=== PATIENT | female | born 1960 | race Caucasian/White ===

== ENCOUNTER 2016-05-05 08:24 | Inpatient (IN) | payer OTHER ==
[~2016-05-05] VITALS: Ht 170.2 cm; Wt 125.5 kg
[~2016-05-05 08:24] MED LIST: ADVAIR 250/501 DISK IH; AMLODIPINE BESY10 MG PO; ASPIR-LOW81 MG PO; ASPIRIN81 M2 PO; ATORVASTATIN CA80 MG PO; ATROVENT H200 INHALA IH; BENZONATATE100 MG PO; CARDIZEM CD,CA240 MG PO; CARTIA XT240 MG PO; CEFDINIR300 MG PO; CLOPIDOGREL75 MG PO; CRESTOR5 MG PO; CYCLOBENZAPRINE5 MG PO; DIGOX125 MCG PO; DIOVAN320 MG PO; DOCUSATE SODIU100 MG PO; DUONEB 2.5-0.5 M3 ML AEROSOL; ELIQUIS5 MG PO; FLONASE16 G1 BOTH NARES; FOSRENOL500 MG PO; FUROSEMIDE40 MG PO; IPRATR-ALBUTEROL3 ML IH; LEVAQUIN750 MG PO; LIPITOR80 MG PO; LOPERAMIDE2 MG PO; LOPRESSOR25 MG PO; LOPRESSOR50 MG PO; LORATADINE10 M2 PO; METOPROLOL SUC100 MG PO; MULTIVITAMIN1 EAC2 PO; MYCOSTATIN 100,60 ML PO; NAPROXEN SODIU220 M1 PO; NITROSTAT0.4 MG SL; NORCO 5/3251 TABLET PO; NORVASC5 MG PO; PLAVIX75 MG PO; PREDNISONE10 MG PO; PREDNISONE5 MG PO; PROTONIX40 MG PO; Phoslo PO; Procardia XL,Adalat PO; QVAR 80 MCG IN7.3 GM IH; RENA-VITE RX T1 EACH PO; Rocaltrol PO; SALINE NOSE SPR45 M1 BOTH NARES; SENSIPAR30 MG PO; SENSIPAR60 MG PO; SENSIPAR90 MG PO; SPIRIVA RESPIMAT4 G1 IH; SPIRIVA1 INHALATI IH; VALACYCLOVIR1000 MG PO; ZOVIRAX OINTMEN15 GM TP; oxyCODONE PO
[2016-05-05 09:51] LABS: HEMATOCRIT 28.4 % (36.0-46.0); MCH 28.6 PG (29.0-34.0); MCHC 30.3 G/DL (30.0-36.0); MCV 94.4 FL (83-99); MEAN PLAT.VOLUME 9.6 uM^3 (9.5-12.4); PLATELET COUNT 339 K/uL (156-360); RBC DIS.WIDTH-CV 20.8 % (11.8-14.6); RBC DIS.WIDTH-SD 66.1 % (39-53); RED BLOOD COUNT 3.01 M/uL (3.80-5.20); WHITE BLOOD COUNT 12.4 K/uL (4.1-10.2)
[2016-05-05 09:53] LABS: CHLORIDE 93 mEq/L (99-109); POTASSIUM 4.7 mEq/L (3.7-5.4); SODIUM 137 mEq/L (136-147)
[2016-05-05 09:54] LABS: EOSINOPHIL (%) 2.6 % (0-5); EOSINOPHIL COUNT 0.3 K/uL (0-0.3); IMMATURE GRANULOCYTE (%) 0.2 % (0.0-0.7); IMMATURE GRANULOCYTE COUNT 0.2 K/uL; MAGNESIUM 1.7 mg/dL (1.3-2.7); MONOCYTE COUNT 0.5 K/uL (0-0.8); NEUTROPHIL COUNT 10.6 K/uL (1.8-6.4)
[2016-05-05 09:55] LABS: GLUCOSE 105 mg/dL (70-99)
[2016-05-05 09:57] LABS: ANION GAP 16 MEQ/L (2-14); TOTAL BILIRUBIN 0.6 mg/dL (0.0-1.0)
[2016-05-05 09:59] LABS: ALKALINE PHOSPHATASE 101 IU/L (3-129); GFR ESTIMATE (CALCULATED) 8 mL/min/
[2016-05-05 10:02] LABS: CREATINE KINASE 42 IU/L (1-294); TOTAL CK 42 IU/L (1-294)
[2016-05-05 10:04] LABS: UREA NITROGEN (BUN) 62 mg/dL (9-23)
[2016-05-05 10:08] LABS: CK-MB 2.1 ng/mL (0.0-4.9)
[2016-05-05 19:28] VITALS: BP 178/78
[2016-05-06 00:33] VITALS: BP 168/74
[2016-05-06 03:51] VITALS: BP 155/81
[2016-05-06 08:02] VITALS: BP 216/91
[2016-05-06 08:07] LABS: C DIFF TOXIN POSITIVE (NEGATIVE)
[2016-05-06 08:12] LABS: PROBE CHECK PASS
[2016-05-06 11:35] LABS: ANION GAP 15 MEQ/L (2-14); CHLORIDE 90 MEQ/L (99-109); MAGNESIUM 1.6 mg/dl (1.3-2.7); POTASSIUM 4.8 MEQ/L (3.7-5.4); SAMPLE HEMOLYSIS CHECK 0; SAMPLE ICTERIC CHECK 0; SAMPLE LIPEMIA CHECK 0; SODIUM 134 MEQ/L (136-147)
[2016-05-06 11:42] LABS: GFR ESTIMATE (CALCULATED) 7 mL/min/; GLUCOSE 141 mg/dL (70-99); UREA NITROGEN (BUN) 68 mg/dL (9-23)
[2016-05-06 13:17] LABS: HEMATOCRIT 24.2 % (36.0-46.0); MCH 29.5 PG (29.0-34.0); MCHC 32.2 G/DL (30.0-36.0); MCV 91.7 FL (83-99); MEAN PLAT.VOLUME 9.4 uM^3 (9.5-12.4); PLATELET COUNT 281 K/uL (156-360); RBC DIS.WIDTH-CV 20.9 % (11.8-14.6); RED BLOOD COUNT 2.64 M/uL (3.80-5.20); WHITE BLOOD COUNT 7.7 K/uL (4.1-10.2)
[2016-05-06 15:49] VITALS: BP 189/76
[2016-05-06 20:06] VITALS: BP 158/82
[2016-05-07] VITALS: BP 161/75
[2016-05-07 04:00] VITALS: BP 150/96
[2016-05-07 06:49] LABS: HEMATOCRIT 24.9 % (36.0-46.0); MCHC 31.3 G/DL (30.0-36.0); MCV 92.6 FL (83-99); MEAN PLAT.VOLUME 9.6 uM^3 (9.5-12.4); PLATELET COUNT 261 K/uL (156-360); RBC DIS.WIDTH-CV 21.1 % (11.8-14.6); RBC DIS.WIDTH-SD 70.5 % (39-53); RED BLOOD COUNT 2.69 M/uL (3.80-5.20); WHITE BLOOD COUNT 6.3 K/uL (4.1-10.2)
[2016-05-07 07:06] LABS: EOSINOPHIL COUNT 0.2 K/uL (0-0.3); IMMATURE GRANULOCYTE (%) 0.2 % (0.0-0.7); LYMPHOCYTE COUNT 0.9 K/uL (1.0-2.8); MONOCYTE (%) 6.9 % (3-12); MONOCYTE COUNT 0.4 K/uL (0-0.8); NEUTROPHIL COUNT 4.8 K/uL (1.8-6.4)
[2016-05-07 07:19] LABS: ANION GAP 9 MEQ/L (2-14); CHLORIDE 96 MEQ/L (99-109); GFR ESTIMATE (CALCULATED) 11 mL/min/; POTASSIUM 4.4 MEQ/L (3.7-5.4); SAMPLE HEMOLYSIS CHECK 0; SAMPLE ICTERIC CHECK 0; SAMPLE LIPEMIA CHECK 0; SODIUM 134 MEQ/L (136-147); UREA NITROGEN (BUN) 43 mg/dL (9-23)
[2016-05-07 07:22] LABS: GLUCOSE 102 mg/dL (70-99)
[2016-05-07 08:00] VITALS: BP 132/78; BP 139/82
[2016-05-07 12:00] VITALS: BP 191/96
[2016-05-07 12:30] VITALS: BP 145/78
[2016-05-07] MEDS ORDERED: METRONIDAZOLE500 MG PO (12:33)
[2016-05-07] MEDS ORDERED: ARANESP100 MCG/0. IV (12:33)
[2016-05-07] MEDS ORDERED: HECTOROL4 MCG/2 M1 IV (12:33)
[2016-05-07] MEDS ORDERED: VENOFER100 MG/5 M IV (12:33)
[2016-05-07 14:30] VITALS: BP 130/78
== END 2016-05-07 15:08 | DRG 371 ==
LOC: EME → EDBD 08:24 → EME 08:24 → 5SOUTH 14:12 → EDOF 14:12 → 5SOUTH 18:53
PROVIDERS: Emergency Medicine; Hospitalist; Internal Medicine
PROC: 5A1D00Z (ICD-10-PCS; principal; 2016-05-06)
DX: A04.7 Enterocolitis due to Clostridium difficile (principal); N18.6 End stage renal disease; I12.0 Hypertensive chronic kidney disease with stage 5 chronic kidney disease or end stage renal disease; J96.10 Chronic respiratory failure, unspecified whether with hypoxia or hypercapnia; I50.32 Chronic diastolic (congestive) heart failure; N25.81 Secondary hyperparathyroidism of renal origin; Q61.2 Polycystic kidney, adult type; I89.0 Lymphedema, not elsewhere classified; D63.1 Anemia in chronic kidney disease; D50.9 Iron deficiency anemia, unspecified; Z99.81 Dependence on supplemental oxygen; J44.9 Chronic obstructive pulmonary disease, unspecified; I48.91 Unspecified atrial fibrillation; Z99.2 Dependence on renal dialysis; I25.10 Atherosclerotic heart disease of native coronary artery without angina pectoris; F41.9 Anxiety disorder, unspecified; F32.9 Major depressive disorder, single episode, unspecified; Z86.73 Personal history of transient ischemic attack (TIA), and cerebral infarction without residual deficits; G89.29 Other chronic pain; M54.9 Dorsalgia, unspecified; F17.200 Nicotine dependence, unspecified, uncomplicated; Z66 Do not resuscitate; E87.70 Fluid overload, unspecified
CPT/HCPCS: 71020; 80048; 80053; 80069; 81003; 82550; 82553; 83735; 85025; 85027; 87493; 87506; 93005; 94640; 94640 76; 94799; 99202; 99281; 99284; G0378; G8978 GP CJ; G8979 GP CI; G8988 GO CJ; G8990 GO CK; J1270; J1644; J1756; S0030

== ENCOUNTER 2016-07-02 11:46 | Inpatient (IN) | payer OTHER ==
[2016-07-02] VITALS (9 sets, daily range): BP systolic 160–196; BP diastolic 73–106
[~2016-07-02] VITALS: Ht 170.2 cm; Wt 106.8 kg
[~2016-07-02 11:46] MED LIST changes: +ARANESP100 MCG/0. IV; +HECTOROL4 MCG/2 M1 IV; +METRONIDAZOLE500 MG PO; +VENOFER100 MG/5 M IV
[2016-07-02 12:32] LABS: BASE EXCESS 18.9 mEq/L (-3 to +3); BICARBONATE 44.5 mEq/L (22-26); CARBOXY HGB 2.9 % (0-5); METHEMOGLOBIN 0.9 % (0-1.5); PCO2 57 mm Hg (35-45); PO2 452 mm Hg (80-100)
[2016-07-02 12:35] LABS: COMMENTS - BLOOD GASES A+C+; DEVICE MASK VENT; FI02 100 %; MODE SPONT; PEEP 5 CM/H20; PRES. SUPPORT 10 CM/H2O; TOTAL RESP RATE 35 resp/min
[2016-07-02 13:32] LABS: MCH 29.7 PG (29.0-34.0); MEAN PLAT.VOLUME 10.2 uM^3 (9.5-12.4); PLATELET COUNT 170 K/uL (156-360); RBC DIS.WIDTH-CV 17.7 % (11.8-14.6); RBC DIS.WIDTH-SD 58.2 % (39-53); RED BLOOD COUNT 3.23 M/uL (3.80-5.20)
[2016-07-02 13:39] LABS: EOSINOPHIL (%) 0.4 % (0-5); IMMATURE GRANULOCYTE (%) 0.4 % (0.0-0.7); IMMATURE GRANULOCYTE COUNT 0.4 K/uL; LYMPHOCYTE COUNT 0.6 K/uL (1.0-2.8); MONOCYTE (%) 4.9 % (3-12); MONOCYTE COUNT 0.5 K/uL (0-0.8); NEUTROPHIL COUNT 9.8 K/uL (1.8-6.4)
[2016-07-02 13:40] LABS: CHLORIDE 90 mEq/L (99-109); POTASSIUM 3.5 mEq/L (3.7-5.4); SODIUM 142 mEq/L (136-147)
[2016-07-02 13:42] LABS: GLUCOSE 114 mg/dL (70-99)
[2016-07-02 13:44] LABS: ANION GAP 16 MEQ/L (2-14); TOTAL BILIRUBIN 1.9 mg/dL (0.0-1.0)
[2016-07-02 13:46] LABS: ALKALINE PHOSPHATASE 129 IU/L (3-129); GFR ESTIMATE (CALCULATED) 12 mL/min/
[2016-07-02 13:47] LABS: UREA NITROGEN (BUN) 24 mg/dL (9-23)
[2016-07-02 13:59] LABS: TROP-I INTERPRETATION NEGATIVE; TROPONIN-I 0.06 ng/mL (0.0-0.30)
[2016-07-02] MEDS ORDERED: SENSIPAR60 MG PO (15:19)
[2016-07-02 16:32] LABS: MAGNESIUM 1.7 mg/dL (1.3-2.7)
[2016-07-02 17:02] LABS: METH RESISTANT S AUREUS PCR POSITIVE (NEGATIVE)
[2016-07-02 17:05] LABS: PROBE CHECK PASS
[2016-07-02 19:20] LABS: POINT-OF-CARE METER ID UU14174217
[2016-07-03] VITALS (8 sets, daily range): BP systolic 116–174; BP diastolic 61–79
[2016-07-03 00:57] LABS: POINT-OF-CARE METER ID UU14174217
[2016-07-03 05:46] LABS: NRBC (%) 0.3 /100 WBC (0-0)
[2016-07-03 06:11] LABS: ANION GAP 14 MEQ/L (2-14); CHLORIDE 89 MEQ/L (99-109); GFR ESTIMATE (CALCULATED) 11 mL/min/; GLUCOSE 119 mg/dL (70-99); MAGNESIUM 1.8 mg/dl (1.3-2.7); POTASSIUM 3.3 MEQ/L (3.7-5.4); SAMPLE HEMOLYSIS CHECK 0; SAMPLE ICTERIC CHECK 0; SAMPLE LIPEMIA CHECK 0; SODIUM 140 MEQ/L (136-147); UREA NITROGEN (BUN) 33 mg/dL (9-23)
[2016-07-03 06:38] LABS: EOSINOPHIL (%) 0 % (0-5); HEMATOCRIT 27.7 % (36.0-46.0); IMMATURE GRANULOCYTE (%) 0.2 % (0.0-0.7); LYMPHOCYTE COUNT 0.6 K/uL (1.0-2.8); MCH 28.6 PG (29.0-34.0); MCHC 30.3 G/DL (30.0-36.0); MCV 94.2 FL (83-99); MEAN PLAT.VOLUME 10.4 uM^3 (9.5-12.4); MONOCYTE (%) 11.9 % (3-12); MONOCYTE COUNT 0.6 K/uL (0-0.8); NEUTROPHIL (%) 75.8 % (45-76); NEUTROPHIL COUNT 3.9 K/uL (1.8-6.4); PLATELET COUNT 155 K/uL (156-360); RBC DIS.WIDTH-SD 61.3 % (39-53); RED BLOOD COUNT 2.94 M/uL (3.80-5.20)
[2016-07-03 06:39] LABS: WHITE BLOOD COUNT 5.2 K/uL (4.1-10.2)
[2016-07-03 06:40] LABS: DIGOXIN 1.3 ng/mL (0.8-2.0)
[2016-07-03 13:32] LABS: POINT-OF-CARE METER ID UU13113731
[2016-07-03 16:43] LABS: TROP-I INTERPRETATION NEGATIVE; TROPONIN-I 0.07 ng/mL (0.0-0.30)
[2016-07-03 16:52] LABS: POINT-OF-CARE METER ID UU14162636
[2016-07-03 21:19] LABS: TROP-I INTERPRETATION NEGATIVE; TROPONIN-I 0.07 ng/mL (0.0-0.30)
[2016-07-03 21:50] LABS: POINT-OF-CARE METER ID UU13113807; POINT-OF-CARE USER ID 608261316
[2016-07-04 03:10] VITALS: BP 132/60
[2016-07-04 03:36] LABS: MCH 29.6 PG (29.0-34.0); MCHC 30.7 G/DL (30.0-36.0); MCV 96.2 FL (83-99); MEAN PLAT.VOLUME 10.9 uM^3 (9.5-12.4); PLATELET COUNT 184 K/uL (156-360); RBC DIS.WIDTH-CV 18.3 % (11.8-14.6); RBC DIS.WIDTH-SD 60.8 % (39-53); RED BLOOD COUNT 2.91 M/uL (3.80-5.20); WHITE BLOOD COUNT 6.6 K/uL (4.1-10.2)
[2016-07-04 03:37] LABS: BASOPHIL COUNT 0.1 K/uL (0-0.1); EOSINOPHIL (%) 0.9 % (0-5); EOSINOPHIL COUNT 0.1 K/uL (0-0.3); IMMATURE GRANULOCYTE (%) 0.3 % (0.0-0.7); IMMATURE GRANULOCYTE COUNT 0.2 K/uL; LYMPHOCYTE COUNT 1.4 K/uL (1.0-2.8); MONOCYTE COUNT 0.7 K/uL (0-0.8); NEUTROPHIL (%) 67.5 % (45-76); NEUTROPHIL COUNT 4.5 K/uL (1.8-6.4)
[2016-07-04 03:49] LABS: CHLORIDE 96 mEq/L (99-109); POTASSIUM 3.8 mEq/L (3.7-5.4); SODIUM 139 mEq/L (136-147)
[2016-07-04 03:50] LABS: MAGNESIUM 1.7 mg/dL (1.3-2.7)
[2016-07-04 03:52] LABS: GLUCOSE 121 mg/dL (70-99)
[2016-07-04 03:53] LABS: ANION GAP 14 MEQ/L (2-14)
[2016-07-04 03:56] LABS: UREA NITROGEN (BUN) 21 mg/dL (9-23)
[2016-07-04 03:59] LABS: TROP-I INTERPRETATION NEGATIVE; TROPONIN-I 0.06 ng/mL (0.0-0.30)
[2016-07-04 04:00] LABS: ALKALINE PHOSPHATASE 98 IU/L (3-129); GFR ESTIMATE (CALCULATED) 16 mL/min/; TOTAL BILIRUBIN 1.1 mg/dL (0.0-1.0)
[2016-07-04 08:31] VITALS: BP 167/78
[2016-07-04 10:02] LABS: HBSG INDEX 0.18; HPCA INDEX 0.08
[2016-07-04 10:03] LABS: ANTI-HEPATITIS A VIRUS (IGM) Nonreactive; HAV INDEX 0.11
[2016-07-04 10:04] LABS: ANTI-HEPATITIS B CORE (IGM) Nonreactive; HBC IgM INDEX 0.06
[2016-07-04 12:04] LABS: POINT-OF-CARE METER ID UU14149398
[2016-07-04 12:39] VITALS: BP 173/81
[2016-07-04] MEDS ORDERED: LOPRESSOR25 MG PO (13:41)
== END 2016-07-04 13:47 | disposition home health service (06) | DRG 291 ==
LOC: EME → EDBD 11:46 → 4WEST 14:28 → 4SOUTH 14:28 → EDOF 14:28 → 4WEST 15:22 → 4SOUTH 07-03 16:57
PROVIDERS: Emergency Medicine; Hospitalist; Internal Medicine; Internal Medicine Nephrology; Physician Assistant
PROC: 5A1D60Z (ICD-10-PCS; principal; 2016-07-02)
DX: I13.2 Hypertensive heart and chronic kidney disease with heart failure and with stage 5 chronic kidney disease, or end stage renal disease (principal); I50.33 Acute on chronic diastolic (congestive) heart failure; J96.01 Acute respiratory failure with hypoxia; N18.6 End stage renal disease; E87.3 Alkalosis; E87.2 Acidosis; Q61.2 Polycystic kidney, adult type; Q61.3 Polycystic kidney, unspecified; E83.39 Other disorders of phosphorus metabolism; D63.1 Anemia in chronic kidney disease; E87.6 Hypokalemia; I12.0 Hypertensive chronic kidney disease with stage 5 chronic kidney disease or end stage renal disease; I25.10 Atherosclerotic heart disease of native coronary artery without angina pectoris; I48.2 Chronic atrial fibrillation; J44.9 Chronic obstructive pulmonary disease, unspecified; F17.210 Nicotine dependence, cigarettes, uncomplicated; F41.9 Anxiety disorder, unspecified; F32.9 Major depressive disorder, single episode, unspecified; Z86.73 Personal history of transient ischemic attack (TIA), and cerebral infarction without residual deficits; E87.70 Fluid overload, unspecified; M10.9 Gout, unspecified
CPT/HCPCS: 36600; 71010; 80048; 80053; 80074; 80162; 82803; 82948; 83735; 83880; 84100; 84484; 85025; 87641; 93005; 93306; 94002; 94010; 94640; 94640 76; 94644; 94799; 99202; 99281; 99285; J0360; J0881; J1100; J1270; J1644; J1815; J1940; J2060

== ENCOUNTER 2016-09-07 21:14 | Emergency (ER) | payer OTHER ==
[~2016-09-07] VITALS: Ht 170.2 cm; Wt 112.9 kg
[2016-09-07 23:02] VITALS: BP 142/89
[2016-09-07] MEDS ORDERED: NORCO 5/3251 TABLET PO (23:02)
== END 2016-09-08 04:09 | disposition home or self-care (01) ==
LOC: EME → EDBD 21:14 → EME 09-08 04:09
DX: S80.02XA Contusion of left knee, initial encounter (principal); S83.92XA Sprain of unspecified site of left knee, initial encounter; V78.1XXA Passenger on bus injured in noncollision transport accident in nontraffic accident, initial encounter; Y92.811 Bus as the place of occurrence of the external cause; E11.22 Type 2 diabetes mellitus with diabetic chronic kidney disease; I12.0 Hypertensive chronic kidney disease with stage 5 chronic kidney disease or end stage renal disease; N18.6 End stage renal disease; Z99.2 Dependence on renal dialysis; J44.9 Chronic obstructive pulmonary disease, unspecified; J45.909 Unspecified asthma, uncomplicated; E78.5 Hyperlipidemia, unspecified; Z79.02 Long term (current) use of antithrombotics/antiplatelets; Z79.82 Long term (current) use of aspirin; F17.200 Nicotine dependence, unspecified, uncomplicated
CPT/HCPCS: 73564; 99281; 99284

== ENCOUNTER 2016-09-10 11:14 | Inpatient (IN) | payer OTHER ==
[~2016-09-10] VITALS: Ht 170.2 cm; Wt 116.7 kg
[2016-09-10 12:59] LABS: HEMATOCRIT 34.2 % (36.0-46.0); MCHC 31.6 G/DL (30.0-36.0); MCV 98.3 FL (83-99); MEAN PLAT.VOLUME 11.1 uM^3 (9.5-12.4); PLATELET COUNT 148 K/uL (156-360); RBC DIS.WIDTH-CV 17.2 % (11.8-14.6); RBC DIS.WIDTH-SD 62.3 % (39-53); RED BLOOD COUNT 3.48 M/uL (3.80-5.20)
[2016-09-10 13:09] LABS: CHLORIDE 89 mEq/L (99-109); POTASSIUM 4.9 mEq/L (3.7-5.4); SODIUM 138 mEq/L (136-147)
[2016-09-10 13:09] LABS: INTER. NORMALIZED RATIO 1.3; PROTHROMBIN TIME 13.5 (9.2-11.2)
[2016-09-10 13:10] LABS: GLUCOSE 108 mg/dL (70-99)
[2016-09-10 13:12] LABS: ANION GAP 16 MEQ/L (2-14)
[2016-09-10 13:14] LABS: GFR ESTIMATE (CALCULATED) 6 mL/min/
[2016-09-10 13:15] LABS: UREA NITROGEN (BUN) 48 mg/dL (9-23)
[2016-09-10 16:42] LABS: C-REACTIVE PROTEIN 94.3 MG/L (0-10)
[2016-09-10] MEDS ORDERED: LOPRESSOR25 MG PO (17:08)
[2016-09-10] MEDS ORDERED: TYLENOL EXTRA500 MG PO (17:09)
[2016-09-10 19:34] VITALS: BP 139/80
[2016-09-11 00:01] VITALS: BP 136/65
[2016-09-11 04:28] VITALS: BP 120/59
[2016-09-11 05:23] LABS: HEMATOCRIT 29.8 % (36.0-46.0); MCHC 31.2 G/DL (30.0-36.0); MCV 99.3 FL (83-99); MEAN PLAT.VOLUME 10.5 uM^3 (9.5-12.4); PLATELET COUNT 133 K/uL (156-360); RBC DIS.WIDTH-CV 17.3 % (11.8-14.6); RBC DIS.WIDTH-SD 63.4 % (39-53); WHITE BLOOD COUNT 4.6 K/uL (4.1-10.2)
[2016-09-11 05:48] LABS: ANION GAP 10 MEQ/L (2-14); CHLORIDE 90 MEQ/L (99-109); GFR ESTIMATE (CALCULATED) 6 mL/min/; GLUCOSE 93 mg/dL (70-99); POTASSIUM 4.8 MEQ/L (3.7-5.4); SAMPLE HEMOLYSIS CHECK 0; SAMPLE ICTERIC CHECK 0; SAMPLE LIPEMIA CHECK 0; SODIUM 138 MEQ/L (136-147); UREA NITROGEN (BUN) 53 mg/dL (9-23)
[2016-09-11 06:54] LABS: BASOPHIL COUNT 0.1 K/uL (0-0.1); EOSINOPHIL (%) 1.9 % (0-5); EOSINOPHIL COUNT 0.1 K/uL (0-0.3); IMMATURE GRANULOCYTE (%) 0.4 % (0.0-0.7); INSTRUMENT ABS NEUTROPHIL CT 3.4 K/uL; LYMPHOCYTE COUNT 0.9 K/uL (1.0-2.8); MONOCYTE (%) 5.4 % (3-12); MONOCYTE COUNT 0.3 K/uL (0-0.8); NEUTROPHIL (%) 72.8 % (45-76); NEUTROPHIL COUNT 3.4 K/uL (1.8-6.4)
[2016-09-11 08:17] VITALS: BP 133/66
[2016-09-11 08:38] LABS: URIC ACID 6.3 mg/dL (3.1-9.2)
[2016-09-11 20:01] VITALS: BP 135/69
[2016-09-11 23:39] VITALS: BP 137/64
[2016-09-12 03:47] VITALS: BP 146/78
[2016-09-12 07:21] LABS: VANCOMYCIN, TROUGH 10.4 MCG/ML (10-20)
[2016-09-12 07:43] VITALS: BP 136/84
[2016-09-12 09:02] LABS: MCH 32.1 PG (29.0-34.0); MCHC 32.4 G/DL (30.0-36.0); MEAN PLAT.VOLUME 10.9 uM^3 (9.5-12.4); PLATELET COUNT 114 K/uL (156-360); RBC DIS.WIDTH-CV 17.2 % (11.8-14.6); RBC DIS.WIDTH-SD 62.7 % (39-53); RED BLOOD COUNT 2.93 M/uL (3.80-5.20)
[2016-09-12 09:17] LABS: ANION GAP 11 MEQ/L (2-14); CHLORIDE 94 MEQ/L (99-109); POTASSIUM 4.7 MEQ/L (3.7-5.4); SAMPLE HEMOLYSIS CHECK 0; SAMPLE ICTERIC CHECK 0; SAMPLE LIPEMIA CHECK 0; SODIUM 138 MEQ/L (136-147)
[2016-09-12 09:25] LABS: GFR ESTIMATE (CALCULATED) 8 mL/min/; GLUCOSE 109 mg/dL (70-99); UREA NITROGEN (BUN) 35 mg/dL (9-23)
[2016-09-12 09:26] LABS: EOSINOPHIL (%) 1.5 % (0-5); EOSINOPHIL COUNT 0.1 K/uL (0-0.3); IMMATURE GRANULOCYTE (%) 0.3 % (0.0-0.7); INSTRUMENT ABS NEUTROPHIL CT 3.1 K/uL; LYMPHOCYTE COUNT 0.7 K/uL (1.0-2.8); MONOCYTE (%) 3.5 % (3-12); MONOCYTE COUNT 0.1 K/uL (0-0.8); NEUTROPHIL (%) 76.6 % (45-76); NEUTROPHIL COUNT 3.1 K/uL (1.8-6.4)
[2016-09-12 10:27] LABS: HBSG INDEX 0.25
[2016-09-12 16:14] VITALS: BP 137/62
[2016-09-12 23:37] VITALS: BP 131/62
[2016-09-13 08:07] VITALS: BP 150/86
[2016-09-13] MEDS ORDERED: KEFLEX500 MG PO (13:39)
[2016-09-13] MEDS ORDERED: ENDOCET 5-3251 EACH PO (13:40)
[2016-09-13 15:25] LABS: HEMATOCRIT 29.8 % (36.0-46.0); MCH 31.1 PG (29.0-34.0); MCHC 31.2 G/DL (30.0-36.0); MCV 99.7 FL (83-99); MEAN PLAT.VOLUME 10.7 uM^3 (9.5-12.4); PLATELET COUNT 126 K/uL (156-360); RBC DIS.WIDTH-SD 61.6 % (39-53); RED BLOOD COUNT 2.99 M/uL (3.80-5.20); WHITE BLOOD COUNT 3.9 K/uL (4.1-10.2)
[2016-09-13 15:41] LABS: ANION GAP 9 MEQ/L (2-14); CHLORIDE 95 MEQ/L (99-109); GFR ESTIMATE (CALCULATED) 11 mL/min/; GLUCOSE 118 mg/dL (70-99); SAMPLE HEMOLYSIS CHECK 0; SAMPLE ICTERIC CHECK 0; SAMPLE LIPEMIA CHECK 0; SODIUM 136 MEQ/L (136-147); UREA NITROGEN (BUN) 30 mg/dL (9-23)
[2016-09-13 16:22] LABS: ABS NEUTROPHIL COUNT 3.1; ANISOCYTOSIS 2+; BAND NEUTROPHILS 0.9 % (0-8.0); BASOPHILS 1.7 %; EOSINOPHIL ABS CT 0; EOSINOPHILS 0.9 % (0-5.0); HEMATOLOGY COMMENT 1 SN; INSTRUMENT ABS NEUTROPHIL CT 2.9 K/uL; LYMPHOCYTES 13.3 % (15.0-45.0); MACROCYTES 2+; OVALOCYTES 1+; PLAT.SUFFICIENCY DECREASED; POIKILOCYTOSIS 1+; SEG.NEUTROPHILS 78.8 % (46.0-76.0)
== END 2016-09-13 19:53 | DRG 602 ==
LOC: EME 11:14 → 3EAST 15:47 → EDOF 15:47 → 3EAST 19:07
PROVIDERS: Emergency Medicine; Internal Medicine; Internal Medicine Nephrology
DX: L03.116 Cellulitis of left lower limb (principal); I13.2 Hypertensive heart and chronic kidney disease with heart failure and with stage 5 chronic kidney disease, or end stage renal disease; N18.6 End stage renal disease; I48.91 Unspecified atrial fibrillation; N25.81 Secondary hyperparathyroidism of renal origin; Z68.41 Body mass index [BMI] 40.0-44.9, adult; I89.0 Lymphedema, not elsewhere classified; I50.32 Chronic diastolic (congestive) heart failure; Z99.2 Dependence on renal dialysis; J44.9 Chronic obstructive pulmonary disease, unspecified; D63.1 Anemia in chronic kidney disease; I25.10 Atherosclerotic heart disease of native coronary artery without angina pectoris; F17.210 Nicotine dependence, cigarettes, uncomplicated; R26.2 Difficulty in walking, not elsewhere classified; G89.29 Other chronic pain; Z86.73 Personal history of transient ischemic attack (TIA), and cerebral infarction without residual deficits; S40.022A Contusion of left upper arm, initial encounter; S40.021A Contusion of right upper arm, initial encounter; S80.12XA Contusion of left lower leg, initial encounter; S80.11XA Contusion of right lower leg, initial encounter; E83.51 Hypocalcemia; T50.995A Adverse effect of other drugs, medicaments and biological substances, initial encounter; E55.9 Vitamin D deficiency, unspecified; E66.01 Morbid (severe) obesity due to excess calories; Z91.19 Patient's noncompliance with other medical treatment and regimen; B95.62 Methicillin resistant Staphylococcus aureus infection as the cause of diseases classified elsewhere; E87.70 Fluid overload, unspecified; V79.88XA Bus occupant (driver) (passenger) injured in other specified transport accidents, initial encounter
CPT/HCPCS: 71010; 73564; 73610; 80048; 80069; 80202; 82565; 83605; 84550; 85025; 85027; 85610; 85730; 86140; 87040; 87340; 93971; 94640; 94640 76; 94760; 94799; 97530 GO; 97530 GP; 99202; 99281; 99284; 99285; J0690; J0696; J1200; J1644; J3370; J7050

== ENCOUNTER 2016-10-07 08:18 | Emergency (ER) | payer OTHER ==
[~2016-10-07] VITALS: Ht 170.2 cm; Wt 128.1 kg
[~2016-10-07 08:18] MED LIST changes: +ENDOCET 5-3251 EACH PO; +KEFLEX500 MG PO; +TYLENOL EXTRA500 MG PO
[2016-10-07 09:28] LABS: BASOPHIL COUNT 0.1 K/uL (0-0.1); EOSINOPHIL (%) 1.4 % (0-5); EOSINOPHIL COUNT 0.1 K/uL (0-0.3); HEMATOCRIT 38.2 % (36.0-46.0); IMMATURE GRANULOCYTE (%) 0.3 % (0.0-0.7); INSTRUMENT ABS NEUTROPHIL CT 5.4 K/uL; LYMPHOCYTE COUNT 0.8 K/uL (1.0-2.8); MCH 31.4 PG (29.0-34.0); MCHC 31.2 G/DL (30.0-36.0); MCV 100.8 FL (83-99); MEAN PLAT.VOLUME 10.8 uM^3 (9.5-12.4); MONOCYTE (%) 10.1 % (3-12); MONOCYTE COUNT 0.7 K/uL (0-0.8); NEUTROPHIL COUNT 5.4 K/uL (1.8-6.4); PLATELET COUNT 155 K/uL (156-360); RBC DIS.WIDTH-CV 17.7 % (11.8-14.6); RBC DIS.WIDTH-SD 65.8 % (39-53); RED BLOOD COUNT 3.79 M/uL (3.80-5.20); WHITE BLOOD COUNT 7.1 K/uL (4.1-10.2)
[2016-10-07 09:43] LABS: CHLORIDE 88 mEq/L (99-109); POTASSIUM 4.7 mEq/L (3.7-5.4); SODIUM 137 mEq/L (136-147); TROP-I INTERPRETATION NEGATIVE; TROPONIN-I 0.03 ng/mL (0.0-0.30)
[2016-10-07 09:45] LABS: GLUCOSE 90 mg/dL (70-99)
[2016-10-07 09:47] LABS: ANION GAP 13 MEQ/L (2-14); TOTAL BILIRUBIN 1.1 mg/dL (0.0-1.0)
[2016-10-07 09:49] LABS: ALKALINE PHOSPHATASE 115 IU/L (3-129); GFR ESTIMATE (CALCULATED) 9 mL/min/
[2016-10-07 09:50] LABS: UREA NITROGEN (BUN) 44 mg/dL (9-23)
[2016-10-07 20:25] VITALS: BP 154/84
== END 2016-10-07 20:26 ==
LOC: EME → EDBD 08:18 → EME 20:26
PROVIDERS: Emergency Medicine; Internal Medicine Nephrology
PROC: 5A1D00Z (ICD-10-PCS; principal; 2016-10-07)
DX: I13.2 Hypertensive heart and chronic kidney disease with heart failure and with stage 5 chronic kidney disease, or end stage renal disease (principal); N18.6 End stage renal disease; I50.32 Chronic diastolic (congestive) heart failure; Z99.2 Dependence on renal dialysis; Z99.81 Dependence on supplemental oxygen; D63.1 Anemia in chronic kidney disease; F17.200 Nicotine dependence, unspecified, uncomplicated; J44.9 Chronic obstructive pulmonary disease, unspecified; E11.9 Type 2 diabetes mellitus without complications; E78.5 Hyperlipidemia, unspecified; Z86.73 Personal history of transient ischemic attack (TIA), and cerebral infarction without residual deficits
CPT/HCPCS: 71020; 80053; 83880; 84484; 85025; 87340; 93005; 99281; 99285; J1644

== ENCOUNTER 2016-10-17 14:27 | Inpatient (IN) | payer OTHER ==
[~2016-10-17] VITALS: Ht 170.2 cm; Wt 113.6 kg
[2016-10-17 15:03] LABS: BASOPHIL COUNT 0.1 K/uL (0-0.1); EOSINOPHIL (%) 0.6 % (0-5); IMMATURE GRANULOCYTE (%) 0.2 % (0.0-0.7); INSTRUMENT ABS NEUTROPHIL CT 4.1 K/uL; LYMPHOCYTE COUNT 0.6 K/uL (1.0-2.8); MCH 31.9 PG (29.0-34.0); MCHC 31.6 G/DL (30.0-36.0); MONOCYTE (%) 10.4 % (3-12); MONOCYTE COUNT 0.6 K/uL (0-0.8); NEUTROPHIL (%) 76.7 % (45-76); NEUTROPHIL COUNT 4.1 K/uL (1.8-6.4); PLATELET COUNT 127 K/uL (156-360); RBC DIS.WIDTH-CV 16.8 % (11.8-14.6); RBC DIS.WIDTH-SD 61.5 % (39-53); RED BLOOD COUNT 3.07 M/uL (3.80-5.20); WHITE BLOOD COUNT 5.4 K/uL (4.1-10.2)
[2016-10-17 15:11] LABS: CHLORIDE 89 mEq/L (99-109); SODIUM 136 mEq/L (136-147)
[2016-10-17 15:13] LABS: GLUCOSE 119 mg/dL (70-99)
[2016-10-17 15:14] LABS: ANION GAP 11 MEQ/L (2-14)
[2016-10-17 15:15] LABS: TOTAL BILIRUBIN 1.3 mg/dL (0.0-1.0)
[2016-10-17 15:16] LABS: ALKALINE PHOSPHATASE 106 IU/L (3-129)
[2016-10-17 15:17] LABS: GFR ESTIMATE (CALCULATED) 13 mL/min/
[2016-10-17 15:18] LABS: UREA NITROGEN (BUN) 32 mg/dL (9-23)
[2016-10-17 15:25] LABS: TROP-I INTERPRETATION NEGATIVE; TROPONIN-I 0.04 ng/mL (0.0-0.30)
[2016-10-17] MEDS ORDERED: FUROSEMIDE20 MG PO (16:09)
[2016-10-17] MEDS ORDERED: LOPRESSOR25 MG PO (16:10)
[2016-10-17] MEDS ORDERED: NICODERM CQ1 EACH TD (16:11)
[2016-10-17] MEDS ORDERED: KEFLEX500 MG PO (16:15)
[2016-10-17 19:29] VITALS: BP 167/83
[2016-10-17 19:40] VITALS: BP 167/83
[2016-10-17 20:00] VITALS: BP 152/85
[2016-10-17 20:49] LABS: TROP-I INTERPRETATION NEGATIVE; TROPONIN-I 0.05 ng/mL (0.0-0.30)
[2016-10-17 21:00] VITALS: BP 156/83
[2016-10-17 21:19] LABS: METH RESISTANT S AUREUS PCR NEGATIVE (NEGATIVE)
[2016-10-17 21:24] LABS: PROBE CHECK PASS; SPECIMEN PROCESSING CONTROL PASS
[2016-10-17 22:00] VITALS: BP 150/78
[2016-10-17 23:00] VITALS: BP 163/88
[2016-10-17 23:33] LABS: POINT-OF-CARE METER ID UU13113731
[2016-10-18] VITALS (24 sets, daily range): BP systolic 126–179; BP diastolic 73–98
[2016-10-18 03:31] LABS: TROP-I INTERPRETATION NEGATIVE; TROPONIN-I 0.03 ng/mL (0.0-0.30)
[2016-10-18 06:39] LABS: HEMATOCRIT 31.6 % (36.0-46.0); MCH 31.5 PG (29.0-34.0); MCHC 31.6 G/DL (30.0-36.0); MCV 99.7 FL (83-99); MEAN PLAT.VOLUME 10.6 uM^3 (9.5-12.4); PLATELET COUNT 124 K/uL (156-360); RBC DIS.WIDTH-CV 16.7 % (11.8-14.6); RBC DIS.WIDTH-SD 60.8 % (39-53); RED BLOOD COUNT 3.17 M/uL (3.80-5.20); WHITE BLOOD COUNT 2.5 K/uL (4.1-10.2)
[2016-10-18 07:00] LABS: ANION GAP 13 MEQ/L (2-14); CHLORIDE 88 MEQ/L (99-109); GFR ESTIMATE (CALCULATED) 11 mL/min/; POTASSIUM 4.5 MEQ/L (3.7-5.4); SAMPLE HEMOLYSIS CHECK 0; SAMPLE ICTERIC CHECK 0; SAMPLE LIPEMIA CHECK 0; SODIUM 138 MEQ/L (136-147); UREA NITROGEN (BUN) 44 mg/dL (9-23)
[2016-10-18 07:02] LABS: GLUCOSE 192 mg/dL (70-99)
[2016-10-18 11:20] LABS: HBSG INDEX 0.23
[2016-10-18 12:34] LABS: POINT-OF-CARE METER ID UU13113803; POINT-OF-CARE USER ID 612031313
[2016-10-18 18:03] LABS: POINT-OF-CARE USER ID 612031313
[2016-10-19] VITALS (20 sets, daily range): BP systolic 145–179; BP diastolic 70–93
[2016-10-19 06:48] LABS: ANION GAP 13 MEQ/L (2-14); CHLORIDE 92 MEQ/L (99-109); GFR ESTIMATE (CALCULATED) 15 mL/min/; MAGNESIUM 1.9 mg/dl (1.3-2.7); POTASSIUM 4.1 MEQ/L (3.7-5.4); SAMPLE HEMOLYSIS CHECK 0; SAMPLE ICTERIC CHECK 0; SAMPLE LIPEMIA CHECK 0; SODIUM 138 MEQ/L (136-147); UREA NITROGEN (BUN) 37 mg/dL (9-23)
[2016-10-19 06:50] LABS: GLUCOSE 111 mg/dL (70-99)
[2016-10-19 07:04] LABS: BASOPHIL COUNT 0.1 K/uL (0-0.1); EOSINOPHIL (%) 0.1 % (0-5); HEMATOCRIT 32.3 % (36.0-46.0); IMMATURE GRANULOCYTE (%) 0.5 % (0.0-0.7); IMMATURE GRANULOCYTE COUNT 0.1 K/uL; INSTRUMENT ABS NEUTROPHIL CT 7.4 K/uL; LYMPHOCYTE COUNT 0.9 K/uL (1.0-2.8); MCH 31.9 PG (29.0-34.0); MCHC 31.6 G/DL (30.0-36.0); MCV 100.9 FL (83-99); MEAN PLAT.VOLUME 11.3 uM^3 (9.5-12.4); MONOCYTE (%) 8.4 % (3-12); MONOCYTE COUNT 0.8 K/uL (0-0.8); NEUTROPHIL (%) 81.1 % (45-76); NEUTROPHIL COUNT 7.4 K/uL (1.8-6.4); PLATELET COUNT 160 K/uL (156-360); RBC DIS.WIDTH-SD 62.5 % (39-53); WHITE BLOOD COUNT 9.1 K/uL (4.1-10.2)
[2016-10-19 13:05] LABS: POINT-OF-CARE METER ID UU13113803
[2016-10-19 18:00] LABS: POINT-OF-CARE METER ID UU13113803
[2016-10-19 23:04] LABS: POINT-OF-CARE METER ID UU13113748
[2016-10-20] VITALS (15 sets, daily range): BP systolic 138–179; BP diastolic 71–89
[2016-10-20 09:15] LABS: EOSINOPHIL (%) 0 % (0-5); IMMATURE GRANULOCYTE (%) 1.1 % (0.0-0.7); IMMATURE GRANULOCYTE COUNT 0.1 K/uL; INSTRUMENT ABS NEUTROPHIL CT 4.7 K/uL; LYMPHOCYTE COUNT 0.5 K/uL (1.0-2.8); MCH 32.3 PG (29.0-34.0); MCHC 32.3 G/DL (30.0-36.0); MEAN PLAT.VOLUME 11.3 uM^3 (9.5-12.4); MONOCYTE (%) 4.5 % (3-12); MONOCYTE COUNT 0.3 K/uL (0-0.8); NEUTROPHIL (%) 84.4 % (45-76); NEUTROPHIL COUNT 4.7 K/uL (1.8-6.4); PLATELET COUNT 160 K/uL (156-360); RBC DIS.WIDTH-CV 16.9 % (11.8-14.6); RBC DIS.WIDTH-SD 60.4 % (39-53); WHITE BLOOD COUNT 5.5 K/uL (4.1-10.2)
[2016-10-20 09:37] LABS: ANION GAP 14 MEQ/L (2-14); CHLORIDE 89 MEQ/L (99-109); GFR ESTIMATE (CALCULATED) 11 mL/min/; GLUCOSE 157 mg/dL (70-99); MAGNESIUM 2.1 mg/dl (1.3-2.7); POTASSIUM 4.9 MEQ/L (3.7-5.4); SAMPLE HEMOLYSIS CHECK 0; SAMPLE ICTERIC CHECK 0; SAMPLE LIPEMIA CHECK 0; SODIUM 134 MEQ/L (136-147)
[2016-10-20 09:39] LABS: UREA NITROGEN (BUN) 63 mg/dL (9-23)
[2016-10-20 17:47] LABS: POINT-OF-CARE METER ID UU14174217
[2016-10-20 21:04] LABS: POINT-OF-CARE METER ID UU14174217
[2016-10-21] VITALS (7 sets, daily range): BP systolic 138–152; BP diastolic 71–97
[2016-10-21 06:04] LABS: POINT-OF-CARE METER ID UU13113748
[2016-10-21 08:22] LABS: EOSINOPHIL (%) 0 % (0-5); IMMATURE GRANULOCYTE (%) 0.7 % (0.0-0.7); IMMATURE GRANULOCYTE COUNT 0.1 K/uL; INSTRUMENT ABS NEUTROPHIL CT 6.4 K/uL; LYMPHOCYTE COUNT 0.7 K/uL (1.0-2.8); MCH 32.7 PG (29.0-34.0); MCHC 33.1 G/DL (30.0-36.0); MCV 98.8 FL (83-99); MEAN PLAT.VOLUME 10.8 uM^3 (9.5-12.4); MONOCYTE (%) 5.6 % (3-12); MONOCYTE COUNT 0.4 K/uL (0-0.8); NEUTROPHIL (%) 84.7 % (45-76); NEUTROPHIL COUNT 6.4 K/uL (1.8-6.4); PLATELET COUNT 198 K/uL (156-360); RBC DIS.WIDTH-CV 16.8 % (11.8-14.6); RED BLOOD COUNT 3.24 M/uL (3.80-5.20); WHITE BLOOD COUNT 7.5 K/uL (4.1-10.2)
[2016-10-21 08:32] LABS: ANION GAP 14 MEQ/L (2-14); CHLORIDE 88 MEQ/L (99-109); POTASSIUM 5.1 MEQ/L (3.7-5.4); SAMPLE HEMOLYSIS CHECK 0; SAMPLE ICTERIC CHECK 0; SAMPLE LIPEMIA CHECK 0; SODIUM 131 MEQ/L (136-147)
[2016-10-21 08:40] LABS: GFR ESTIMATE (CALCULATED) 9 mL/min/; GLUCOSE 184 mg/dL (70-99); UREA NITROGEN (BUN) 81 mg/dL (9-23)
[2016-10-21 13:11] LABS: POINT-OF-CARE METER ID UU13113748
[2016-10-21 17:23] LABS: POINT-OF-CARE METER ID UU14174217
[2016-10-21 20:20] LABS: POINT-OF-CARE METER ID UU13113748
[2016-10-22 06:30] LABS: EOSINOPHIL (%) 0 % (0-5); HEMATOCRIT 35.8 % (36.0-46.0); IMMATURE GRANULOCYTE (%) 0.9 % (0.0-0.7); IMMATURE GRANULOCYTE COUNT 0.1 K/uL; INSTRUMENT ABS NEUTROPHIL CT 7.8 K/uL; LYMPHOCYTE COUNT 0.8 K/uL (1.0-2.8); MCH 31.8 PG (29.0-34.0); MCHC 31.8 G/DL (30.0-36.0); MCV 99.7 FL (83-99); MEAN PLAT.VOLUME 10.6 uM^3 (9.5-12.4); MONOCYTE (%) 6.2 % (3-12); MONOCYTE COUNT 0.6 K/uL (0-0.8); NEUTROPHIL (%) 83.9 % (45-76); NEUTROPHIL COUNT 7.8 K/uL (1.8-6.4); NRBC (%) 0.3 /100 WBC (0-0); PLATELET COUNT 230 K/uL (156-360); RBC DIS.WIDTH-CV 16.8 % (11.8-14.6); RBC DIS.WIDTH-SD 60.2 % (39-53); RED BLOOD COUNT 3.59 M/uL (3.80-5.20); WHITE BLOOD COUNT 9.3 K/uL (4.1-10.2)
[2016-10-22 07:03] LABS: ANION GAP 12 MEQ/L (2-14); CHLORIDE 88 MEQ/L (99-109); GFR ESTIMATE (CALCULATED) 12 mL/min/; GLUCOSE 161 mg/dL (70-99); POTASSIUM 5.1 MEQ/L (3.7-5.4); SAMPLE HEMOLYSIS CHECK 1; SAMPLE ICTERIC CHECK 0; SAMPLE LIPEMIA CHECK 0; SODIUM 133 MEQ/L (136-147); UREA NITROGEN (BUN) 59 mg/dL (9-23)
[2016-10-22] MEDS ORDERED: PREDNISONE10 MG PO (07:51)
[2016-10-22] MEDS ORDERED: TESSALON200 MG PO (07:53)
[2016-10-22 08:00] VITALS: BP 141/64
[2016-10-22 08:43] LABS: POINT-OF-CARE METER ID UU13113748
== END 2016-10-22 10:45 | DRG 189 ==
LOC: EME 14:27 → EDOF 17:57 → 4WEST 17:57
PROVIDERS: Emergency Medicine; Hospitalist; Internal Medicine; Internal Medicine Nephrology
PROC: 5A1D60Z (ICD-10-PCS; principal; 2016-10-17)
PROC: 5A09357 Assistance with Respiratory Ventilation, Less than 24 Consecutive Hours, Continuous Positive Airway Pressure (ICD-10-PCS; 2016-10-18)
DX: J96.21 Acute and chronic respiratory failure with hypoxia (principal); N17.9 Acute kidney failure, unspecified; I50.33 Acute on chronic diastolic (congestive) heart failure; N25.81 Secondary hyperparathyroidism of renal origin; E11.22 Type 2 diabetes mellitus with diabetic chronic kidney disease; N18.6 End stage renal disease; I13.2 Hypertensive heart and chronic kidney disease with heart failure and with stage 5 chronic kidney disease, or end stage renal disease; J44.1 Chronic obstructive pulmonary disease with (acute) exacerbation; I48.0 Paroxysmal atrial fibrillation; Q61.2 Polycystic kidney, adult type; E66.01 Morbid (severe) obesity due to excess calories; J90 Pleural effusion, not elsewhere classified; F41.9 Anxiety disorder, unspecified; F32.9 Major depressive disorder, single episode, unspecified; K21.9 Gastro-esophageal reflux disease without esophagitis; F17.200 Nicotine dependence, unspecified, uncomplicated; I25.10 Atherosclerotic heart disease of native coronary artery without angina pectoris; D50.9 Iron deficiency anemia, unspecified; D63.1 Anemia in chronic kidney disease; Z68.41 Body mass index [BMI] 40.0-44.9, adult; Z95.5 Presence of coronary angioplasty implant and graft; Z99.81 Dependence on supplemental oxygen; Z99.2 Dependence on renal dialysis
CPT/HCPCS: 71010; 80048; 80053; 80069; 80162; 82948; 83735; 84100; 84484; 85025; 85027; 87340; 87641; 93005; 93306; 93882; 94002; 94003; 94640; 94640 76; 94660; 94760; 94799; 99202; 99281; 99285; J0881; J1270; J1644; J1756; J1815; J1940; J2920; J2930; J7512

== ENCOUNTER 2016-11-09 16:51 | Emergency (ER) | payer OTHER ==
[~2016-11-09] VITALS: Ht 170.2 cm; Wt 123.1 kg
[~2016-11-09 16:51] MED LIST changes: +FUROSEMIDE20 MG PO; +NICODERM CQ1 EACH TD; +TESSALON200 MG PO
[2016-11-09] MEDS ORDERED: FUROSEMIDE80 MG PO (17:54)
[2016-11-09] MEDS ORDERED: OMEPRAZOLE20 MG PO (17:55)
[2016-11-09] MEDS ORDERED: SENNA8.6 MG PO (17:57)
[2016-11-09] MEDS ORDERED: ADVAIR 250/501 DISK IH (17:58)
[2016-11-09] MEDS ORDERED: FOSRENOL1000 MG PO (17:59)
[2016-11-09 18:23] LABS: HEMATOCRIT 30.2 % (36.0-46.0)
[2016-11-09 22:41] VITALS: BP 138/88
== END 2016-11-09 22:42 ==
LOC: EME 16:51
PROVIDERS: Emergency Medicine
PROC: 0HQDXZZ Repair Right Lower Arm Skin, External Approach (ICD-10-PCS; principal; 2016-11-09)
DX: T82.838A Hemorrhage due to vascular prosthetic devices, implants and grafts, initial encounter (principal); Y84.1 Kidney dialysis as the cause of abnormal reaction of the patient, or of later complication, without mention of misadventure at the time of the procedure; Z99.2 Dependence on renal dialysis; I13.2 Hypertensive heart and chronic kidney disease with heart failure and with stage 5 chronic kidney disease, or end stage renal disease; E11.22 Type 2 diabetes mellitus with diabetic chronic kidney disease; N18.6 End stage renal disease; I50.9 Heart failure, unspecified; E78.5 Hyperlipidemia, unspecified; Z79.02 Long term (current) use of antithrombotics/antiplatelets; Z79.82 Long term (current) use of aspirin; J44.9 Chronic obstructive pulmonary disease, unspecified; J45.909 Unspecified asthma, uncomplicated; Z87.891 Personal history of nicotine dependence
CPT/HCPCS: 85014; 85018; 99281; 99285

== ENCOUNTER → 2016-11-26 | Outpatient (CLI) | payer OTHER ==
[~2016-11-26] MED LIST changes: +FOSRENOL1000 MG PO; +FUROSEMIDE80 MG PO; +OMEPRAZOLE20 MG PO; +SENNA8.6 MG PO; +TUMS500 MG PO
== END ==
LOC: RAD 13:00
DX: R22.1 Localized swelling, mass and lump, neck (principal)
CPT/HCPCS: 93880; 93882

== ENCOUNTER 2016-11-29 08:10 | Day surgery (SDC) | payer OTHER ==
[~2016-11-29] VITALS: Ht 170.2 cm; Wt 121.6 kg
[2016-11-29 08:26] LABS: HEMATOCRIT 27.8 % (36.0-46.0); MCH 30.5 PG (29.0-34.0); MCHC 30.9 G/DL (30.0-36.0); MCV 98.6 FL (83-99); MEAN PLAT.VOLUME 9.8 uM^3 (9.5-12.4); PLATELET COUNT 250 K/uL (156-360); RBC DIS.WIDTH-CV 15.2 % (11.8-14.6); RBC DIS.WIDTH-SD 54.7 % (39-53); RED BLOOD COUNT 2.82 M/uL (3.80-5.20); WHITE BLOOD COUNT 8.2 K/uL (4.1-10.2)
[2016-11-29 08:38] LABS: CHLORIDE 86 mEq/L (99-109); POTASSIUM 3.4 mEq/L (3.7-5.4); SODIUM 136 mEq/L (136-147)
[2016-11-29 08:40] LABS: GLUCOSE 101 mg/dL (70-99)
[2016-11-29 08:41] LABS: ANION GAP 13 MEQ/L (2-14)
[2016-11-29 08:44] LABS: GFR ESTIMATE (CALCULATED) 10 mL/min/
[2016-11-29 08:45] LABS: UREA NITROGEN (BUN) 32 mg/dL (9-23)
[2016-11-29 12:21] LABS: POINT-OF-CARE METER ID UU13113675
[2016-11-29 13:22] VITALS: BP 152/70
[2016-11-29 13:38] VITALS: BP 113/64
== END 2016-11-29 13:53 ==
LOC: SDC 08:10
PROVIDERS: Surgery
PROC: B51W1ZZ Fluoroscopy of Dialysis Shunt/Fistula using Low Osmolar Contrast (ICD-10-PCS; principal; 2016-11-29)
PROC: 05HY33Z Insertion of Infusion Device into Upper Vein, Percutaneous Approach (ICD-10-PCS; principal; 2016-11-29)
PROC: 3E03317 Introduction of Other Thrombolytic into Peripheral Vein, Percutaneous Approach (ICD-10-PCS; principal; 2016-11-29)
PROC: 05753ZZ Dilation of Right Subclavian Vein, Percutaneous Approach (ICD-10-PCS; principal; 2016-11-29)
DX: T82.858A Stenosis of other vascular prosthetic devices, implants and grafts, initial encounter (principal); I12.0 Hypertensive chronic kidney disease with stage 5 chronic kidney disease or end stage renal disease; N18.6 End stage renal disease; Z99.2 Dependence on renal dialysis; J44.9 Chronic obstructive pulmonary disease, unspecified; I25.10 Atherosclerotic heart disease of native coronary artery without angina pectoris; Z95.5 Presence of coronary angioplasty implant and graft; E78.5 Hyperlipidemia, unspecified; F41.1 Generalized anxiety disorder; F17.200 Nicotine dependence, unspecified, uncomplicated; Z79.82 Long term (current) use of aspirin; Z82.49 Family history of ischemic heart disease and other diseases of the circulatory system; Z84.1 Family history of disorders of kidney and ureter; Z82.5 Family history of asthma and other chronic lower respiratory diseases; Z88.8 Allergy status to other drugs, medicaments and biological substances; Z91.030 Bee allergy status
CPT/HCPCS: 80048; 82948; 85027; 87641; 93005; C1725; C1769; C1894; J0690; J1644; J2250; J3010

== ENCOUNTER 2016-12-14 04:33 | Inpatient (IN) | payer OTHER ==
[~2016-12-14] VITALS: Ht 170.2 cm; Wt 129.6 kg
[2016-12-14] MEDS ORDERED: SENSIPAR30 MG PO ×2 (05:04→20:33)
[2016-12-14 05:07] LABS: VENOUS PCO2 54 mm Hg (41-51)
[2016-12-14 05:09] LABS: CARBON DIOXIDE (BICARBONATE) > 40.0 MEQ/L (20-31)
[2016-12-14 05:14] LABS: HEMATOCRIT 28.4 % (36.0-46.0); NRBC (%) 0.2 /100 WBC (0-0); RBC DIS.WIDTH-CV 17.5 % (11.8-14.6); RBC DIS.WIDTH-SD 64.1 % (39-53); RED BLOOD COUNT 2.84 M/uL (3.80-5.20); WHITE BLOOD COUNT 8.8 K/uL (4.1-10.2)
[2016-12-14 05:17] LABS: CHLORIDE 89 mEq/L (99-109); POTASSIUM 3.3 mEq/L (3.7-5.4); SODIUM 139 mEq/L (136-147)
[2016-12-14 05:19] LABS: GLUCOSE 115 mg/dL (70-99)
[2016-12-14 05:20] LABS: ANION GAP 13 MEQ/L (2-14)
[2016-12-14 05:21] LABS: TOTAL BILIRUBIN 1.2 mg/dL (0.0-1.0)
[2016-12-14 05:22] LABS: ALKALINE PHOSPHATASE 128 IU/L (3-129)
[2016-12-14 05:23] LABS: GFR ESTIMATE (CALCULATED) 15 mL/min/
[2016-12-14 05:24] LABS: UREA NITROGEN (BUN) 28 mg/dL (9-23)
[2016-12-14 05:26] LABS: LIPASE 41 U/L (1.0-51.0)
[2016-12-14 05:32] LABS: DIGOXIN 0.8 ng/mL (0.8-2.0); TROP-I INTERPRETATION NEGATIVE; TROPONIN-I 0.03 ng/mL (0.0-0.30)
[2016-12-14 05:47] LABS: MEAN PLAT.VOLUME 10.4 uM^3 (9.5-12.4); PLAT.SUFFICIENCY ADEQUATE; PLATELET COUNT 163 K/uL (156-360)
[2016-12-14 06:47] LABS: ADD MIUA? YES; BILIRUBIN NEGATIVE; BLOOD SMALL; COLOR YELLOW ((YELLOW)); GLUCOSE (STRIP) 50; KETONES NEGATIVE; LEUKOCYTES NEGATIVE; NITRITE NEGATIVE; PROTEIN (STRIP) >=500; SPECIFIC GRAVITY 1.009 (1.000-1.030); UROBILINOGEN 0.2 MG/DL (0.2-1.0)
[2016-12-14 06:49] LABS: BACTERIA NONE SEEN /HPF; EPITHELIAL CELLS NONE SEEN /HPF; MUCUS NONE SEEN /LPF; UCUL ADDED? NO; WHITE BLOOD CELLS 0-5 /HPF (0-5)
[2016-12-14 09:05] VITALS: BP 149/83
[2016-12-14 10:49] LABS: TROP-I INTERPRETATION NEGATIVE; TROPONIN-I 0.04 ng/mL (0.0-0.30)
[2016-12-14 12:02] VITALS: BP 130/91
[2016-12-14 15:00] VITALS: BP 130/74
[2016-12-14 19:26] VITALS: BP 139/78
[2016-12-14 23:46] VITALS: BP 133/71
[2016-12-15 04:10] VITALS: BP 134/76
[2016-12-15 09:20] VITALS: BP 161/96
[2016-12-15 10:25] LABS: HEMATOCRIT 28.2 % (36.0-46.0); MCH 32.4 PG (29.0-34.0); MCHC 31.9 G/DL (30.0-36.0); MCV 101.4 FL (83-99); MEAN PLAT.VOLUME 10.2 uM^3 (9.5-12.4); PLATELET COUNT 144 K/uL (156-360); RBC DIS.WIDTH-CV 17.4 % (11.8-14.6); RBC DIS.WIDTH-SD 64.5 % (39-53); RED BLOOD COUNT 2.78 M/uL (3.80-5.20); WHITE BLOOD COUNT 6.3 K/uL (4.1-10.2)
[2016-12-15 10:41] LABS: TROP-I INTERPRETATION NEGATIVE; TROPONIN-I 0.02 ng/mL (0.0-0.30)
[2016-12-15 10:51] LABS: ANION GAP 15 MEQ/L (2-14); CHLORIDE 88 MEQ/L (99-109); GFR ESTIMATE (CALCULATED) 12 mL/min/; GLUCOSE 129 mg/dL (70-99); POTASSIUM 3.8 MEQ/L (3.7-5.4); SAMPLE HEMOLYSIS CHECK 0; SAMPLE ICTERIC CHECK 0; SAMPLE LIPEMIA CHECK 0; SODIUM 137 MEQ/L (136-147); UREA NITROGEN (BUN) 39 mg/dL (9-23)
[2016-12-15 11:18] VITALS: BP 159/67
[2016-12-15 15:20] VITALS: BP 145/90
[2016-12-15 16:06] LABS: METH RESISTANT S AUREUS PCR POSITIVE (NEGATIVE)
[2016-12-15 16:09] LABS: PROBE CHECK PASS
[2016-12-15 19:58] VITALS: BP 159/64
[2016-12-15 23:30] VITALS: BP 145/76
[2016-12-16 09:00] LABS: EOSINOPHIL COUNT 0.2 K/uL (0-0.3); HEMATOCRIT 27.8 % (36.0-46.0); IMMATURE GRANULOCYTE (%) 0.5 % (0.0-0.7); INSTRUMENT ABS NEUTROPHIL CT 4.6 K/uL; LYMPHOCYTE COUNT 0.8 K/uL (1.0-2.8); MCH 31.4 PG (29.0-34.0); MCHC 31.3 G/DL (30.0-36.0); MCV 100.4 FL (83-99); MEAN PLAT.VOLUME 10.5 uM^3 (9.5-12.4); MONOCYTE (%) 9.6 % (3-12); MONOCYTE COUNT 0.6 K/uL (0-0.8); NEUTROPHIL (%) 73.5 % (45-76); NEUTROPHIL COUNT 4.6 K/uL (1.8-6.4); PLATELET COUNT 150 K/uL (156-360); RBC DIS.WIDTH-CV 17.3 % (11.8-14.6); RBC DIS.WIDTH-SD 62.6 % (39-53); RED BLOOD COUNT 2.77 M/uL (3.80-5.20); WHITE BLOOD COUNT 6.2 K/uL (4.1-10.2)
[2016-12-16 09:16] LABS: ANION GAP 11 MEQ/L (2-14); CHLORIDE 89 MEQ/L (99-109); SAMPLE HEMOLYSIS CHECK 0; SAMPLE ICTERIC CHECK 0; SAMPLE LIPEMIA CHECK 0; SODIUM 135 MEQ/L (136-147)
[2016-12-16 09:24] LABS: GFR ESTIMATE (CALCULATED) 10 mL/min/; GLUCOSE 114 mg/dL (70-99); UREA NITROGEN (BUN) 48 mg/dL (9-23)
[2016-12-16 10:45] LABS: HBSG INDEX 0.18
[2016-12-16 12:28] LABS: VANCOMYCIN, TROUGH 15.8 MCG/ML (10-20)
[2016-12-16 15:58] VITALS: BP 130/72
[2016-12-16 19:43] VITALS: BP 128/59
[2016-12-16 23:47] VITALS: BP 130/60
[2016-12-17 08:07] LABS: BASOPHIL COUNT 0.1 K/uL (0-0.1); EOSINOPHIL (%) 4.1 % (0-5); EOSINOPHIL COUNT 0.2 K/uL (0-0.3); HEMATOCRIT 28.7 % (36.0-46.0); IMMATURE GRANULOCYTE (%) 0.2 % (0.0-0.7); INSTRUMENT ABS NEUTROPHIL CT 3.6 K/uL; LYMPHOCYTE COUNT 0.8 K/uL (1.0-2.8); MCH 32.2 PG (29.0-34.0); MCHC 31.7 G/DL (30.0-36.0); MCV 101.4 FL (83-99); MEAN PLAT.VOLUME 10.8 uM^3 (9.5-12.4); MONOCYTE (%) 10.1 % (3-12); MONOCYTE COUNT 0.5 K/uL (0-0.8); NEUTROPHIL (%) 69.5 % (45-76); NEUTROPHIL COUNT 3.6 K/uL (1.8-6.4); PLATELET COUNT 143 K/uL (156-360); RBC DIS.WIDTH-CV 17.6 % (11.8-14.6); RBC DIS.WIDTH-SD 64.6 % (39-53); RED BLOOD COUNT 2.83 M/uL (3.80-5.20); WHITE BLOOD COUNT 5.2 K/uL (4.1-10.2)
[2016-12-17 08:33] LABS: ANION GAP 13 MEQ/L (2-14); CHLORIDE 91 MEQ/L (99-109); GFR ESTIMATE (CALCULATED) 12 mL/min/; GLUCOSE 147 mg/dL (70-99); POTASSIUM 3.9 MEQ/L (3.7-5.4); SAMPLE HEMOLYSIS CHECK 0; SAMPLE ICTERIC CHECK 0; SAMPLE LIPEMIA CHECK 0; SODIUM 139 MEQ/L (136-147); UREA NITROGEN (BUN) 35 mg/dL (9-23)
[2016-12-17 11:43] VITALS: BP 147/76
[2016-12-17 15:14] VITALS: BP 126/68
[2016-12-17 23:46] VITALS: BP 144/77
[2016-12-18 07:25] VITALS: BP 160/80
[2016-12-18 09:09] LABS: BASOPHIL COUNT 0.1 K/uL (0-0.1); EOSINOPHIL COUNT 0.2 K/uL (0-0.3); HEMATOCRIT 28.6 % (36.0-46.0); IMMATURE GRANULOCYTE (%) 0.2 % (0.0-0.7); INSTRUMENT ABS NEUTROPHIL CT 3.7 K/uL; LYMPHOCYTE COUNT 0.8 K/uL (1.0-2.8); MCH 31.8 PG (29.0-34.0); MCHC 31.5 G/DL (30.0-36.0); MCV 101.1 FL (83-99); MEAN PLAT.VOLUME 10.9 uM^3 (9.5-12.4); MONOCYTE (%) 9.1 % (3-12); MONOCYTE COUNT 0.5 K/uL (0-0.8); NEUTROPHIL (%) 70.5 % (45-76); NEUTROPHIL COUNT 3.7 K/uL (1.8-6.4); PLATELET COUNT 145 K/uL (156-360); RBC DIS.WIDTH-CV 17.2 % (11.8-14.6); RBC DIS.WIDTH-SD 63.8 % (39-53); RED BLOOD COUNT 2.83 M/uL (3.80-5.20); WHITE BLOOD COUNT 5.3 K/uL (4.1-10.2)
[2016-12-18 09:34] LABS: ANION GAP 13 MEQ/L (2-14); CHLORIDE 91 MEQ/L (99-109); GLUCOSE 139 mg/dL (70-99); POTASSIUM 4.3 MEQ/L (3.7-5.4); SAMPLE HEMOLYSIS CHECK 0; SAMPLE ICTERIC CHECK 0; SAMPLE LIPEMIA CHECK 0; SODIUM 136 MEQ/L (136-147); UREA NITROGEN (BUN) 44 mg/dL (9-23)
[2016-12-18 09:36] LABS: GFR ESTIMATE (CALCULATED) 10 mL/min/; VANCOMYCIN, TROUGH 24.9 MCG/ML (10-20)
[2016-12-18] MEDS ORDERED: SENSIPAR60 MG PO (13:21)
[2016-12-18] MEDS ORDERED: SENSIPAR30 MG PO (13:21)
[2016-12-18] MEDS ORDERED: LEVAQUIN500 MG PO (13:23)
[2016-12-18 15:11] VITALS: BP 158/74
== END 2016-12-18 16:07 | DRG 871 ==
LOC: EME → EDBD 04:33 → EDOF 06:14 → 5SOUTH 06:14 → ENRESERV 06:20 → 5SOUTH 07:20 → ENPENDDIS 12-18 → 5SOUTH 12-18 16:07
PROVIDERS: Emergency Medicine; Hospitalist; Internal Medicine; Nurse Practitioner Adult Health
PROC: 5A1D60Z (ICD-10-PCS; principal; 2016-12-16)
DX: A41.9 Sepsis, unspecified organism (principal); J44.0 Chronic obstructive pulmonary disease with (acute) lower respiratory infection; J18.9 Pneumonia, unspecified organism; I13.2 Hypertensive heart and chronic kidney disease with heart failure and with stage 5 chronic kidney disease, or end stage renal disease; N18.6 End stage renal disease; E11.22 Type 2 diabetes mellitus with diabetic chronic kidney disease; I50.9 Heart failure, unspecified; Z99.2 Dependence on renal dialysis; D50.9 Iron deficiency anemia, unspecified; D63.1 Anemia in chronic kidney disease; E78.5 Hyperlipidemia, unspecified; Z99.81 Dependence on supplemental oxygen; F17.200 Nicotine dependence, unspecified, uncomplicated; I25.10 Atherosclerotic heart disease of native coronary artery without angina pectoris; I48.91 Unspecified atrial fibrillation; K21.9 Gastro-esophageal reflux disease without esophagitis; Q61.2 Polycystic kidney, adult type; E66.9 Obesity, unspecified; Z68.41 Body mass index [BMI] 40.0-44.9, adult; Z95.5 Presence of coronary angioplasty implant and graft
CPT/HCPCS: 71010; 71020; 80048; 80053; 80069; 80162; 80202; 81003; 82803; 83605; 83690; 84484; 85025; 85025 91; 85027; 87040; 87340; 87641; 93005; 94640; 94640 76; 94799; 99202; 99281; 99285; J0692; J0881; J1270; J1644; J1756; J1956; J3370; J7040; J7050

== ENCOUNTER → 2016-12-26 | Outpatient (CLI) | payer OTHER ==
[~2016-12-26] MED LIST changes: +LEVAQUIN500 MG PO
== END | disposition home or self-care (01) ==
LOC: RAD 10:35
DX: I51.7 Cardiomegaly (principal); J90 Pleural effusion, not elsewhere classified
CPT/HCPCS: 71020

== ENCOUNTER → 2017-01-28 | Outpatient (CLI) | payer OTHER | LOC: RAD 01-02 11:00 | DX: R91.1 Solitary pulmonary nodule (principal); J90 Pleural effusion, not elsewhere classified; R59.0 Localized enlarged lymph nodes | CPT/HCPCS: 71250 ==

== ENCOUNTER 2017-02-10 09:14 | Emergency (ER) | payer OTHER ==
[~2017-02-10] VITALS: Ht 170.2 cm; Wt 131.5 kg
[2017-02-10 09:41] LABS: EOSINOPHIL (%) 0.9 % (0-5); EOSINOPHIL COUNT 0.1 K/uL (0-0.3); HEMATOCRIT 32.3 % (36.0-46.0); IMMATURE GRANULOCYTE (%) 0.2 % (0.0-0.7); INSTRUMENT ABS NEUTROPHIL CT 4.4 K/uL; LYMPHOCYTE COUNT 0.8 K/uL (1.0-2.8); MCH 30.2 PG (29.0-34.0); MCHC 31.6 G/DL (30.0-36.0); MCV 95.6 FL (83-99); MEAN PLAT.VOLUME 9.8 uM^3 (9.5-12.4); MONOCYTE (%) 10.1 % (3-12); MONOCYTE COUNT 0.6 K/uL (0-0.8); NEUTROPHIL (%) 74.8 % (45-76); NEUTROPHIL COUNT 4.4 K/uL (1.8-6.4); PLATELET COUNT 130 K/uL (156-360); RBC DIS.WIDTH-CV 15.4 % (11.8-14.6); RBC DIS.WIDTH-SD 53.6 % (39-53); RED BLOOD COUNT 3.38 M/uL (3.80-5.20); WHITE BLOOD COUNT 5.9 K/uL (4.1-10.2)
[2017-02-10 09:47] LABS: INTER. NORMALIZED RATIO 1.3; PROTHROMBIN TIME 14.2 SEC (10.2-12.9)
[2017-02-10 09:49] LABS: CHLORIDE 87 mEq/L (99-109); PTT 34.6 SEC (25-37); SODIUM 136 mEq/L (136-147)
[2017-02-10 09:50] LABS: GLUCOSE 106 mg/dL (70-99)
[2017-02-10 09:52] LABS: ANION GAP 14 MEQ/L (2-14)
[2017-02-10 09:54] LABS: GFR ESTIMATE (CALCULATED) 8 mL/min/
[2017-02-10 09:55] LABS: UREA NITROGEN (BUN) 39 mg/dL (9-23)
[2017-02-10 10:02] LABS: TROP-I INTERPRETATION NEGATIVE; TROPONIN-I 0.03 ng/mL (0.0-0.30)
[2017-02-10 15:22] VITALS: BP 184/95
== END 2017-02-10 15:33 ==
LOC: EME 09:14
PROVIDERS: Emergency Medicine
DX: N18.9 Chronic kidney disease, unspecified (principal); I48.91 Unspecified atrial fibrillation; R20.0 Anesthesia of skin; Z99.2 Dependence on renal dialysis; E78.5 Hyperlipidemia, unspecified; I50.9 Heart failure, unspecified; I25.2 Old myocardial infarction; K21.9 Gastro-esophageal reflux disease without esophagitis; Z79.01 Long term (current) use of anticoagulants; Z95.5 Presence of coronary angioplasty implant and graft; Z99.81 Dependence on supplemental oxygen; Z87.891 Personal history of nicotine dependence
CPT/HCPCS: 71010; 80048; 81003; 84484; 85025; 85610; 85730; 93005; 99281; 99284

== ENCOUNTER 2017-05-30 08:16 | Emergency (ER) | payer OTHER ==
[~2017-05-30] VITALS: Ht 170.2 cm; Wt 125.0 kg
[2017-05-30 08:50] LABS: HEMATOCRIT 32.1 % (36.0-46.0); HEMOGLOBIN 10.6 G/DL (11.9-15.5); MCH 30.9 PG (29.0-34.0); MCV 93.6 FL (83-99); PLATELET COUNT 98 K/uL (156-360); RBC DIS.WIDTH-CV 15.7 % (11.8-14.6); RED BLOOD COUNT 3.43 M/uL (3.80-5.20)
[2017-05-30 08:51] LABS: CARBON DIOXIDE (BICARBONATE) 38.9 MEQ/L (20-31)
[2017-05-30 09:00] LABS: ALBUMIN 3.7 g/dL (3.2-4.8)
[2017-05-30 09:02] LABS: GLUCOSE 100 mg/dL (70-99); TOTAL PROTEIN 6.7 g/dL (6.4-8.3)
[2017-05-30 09:04] LABS: TOTAL BILIRUBIN 1.3 mg/dL (0.0-1.0)
[2017-05-30 09:06] LABS: ALKALINE PHOSPHATASE 195 IU/L (3-129); CREATININE 5.3 mg/dL (0.6-1.3); GFR ESTIMATE (CALCULATED) 9 mL/min/
[2017-05-30 09:07] LABS: INTER. NORMALIZED RATIO 1.5; UREA NITROGEN (BUN) 58 mg/dL (9-23)
[2017-05-30 09:08] LABS: AST (GOT) 39 IU/L (2-34)
[2017-05-30 09:09] LABS: ALT (GPT) 33 IU/L (3-49)
[2017-05-30 09:16] LABS: CHLORIDE 86 mEq/L (99-109); POTASSIUM 4.1 mEq/L (3.7-5.4); SODIUM 135 mEq/L (136-147)
[2017-05-30 09:34] LABS: ABS NEUTROPHIL COUNT 4.9; ATYPICAL LYMPHOCYTE 0.9 %; EOSINOPHIL ABS CT 0; LYMPHOCYTES 12.2 % (15.0-45.0); MONOCYTES 5.2 % (0-9.0); SEG.NEUTROPHILS 81.7 % (46.0-76.0); SMUDGE CELLS 5.2
[2017-05-30] MEDS ORDERED: TAMIFLU75 MG PO (10:54)
[2017-05-30 11:14] VITALS: BP 114/81
== END 2017-05-30 11:31 ==
LOC: EME 08:16
PROVIDERS: Physician Assistant
DX: J10.1 Influenza due to other identified influenza virus with other respiratory manifestations (principal); N18.6 End stage renal disease; Z99.2 Dependence on renal dialysis; J44.9 Chronic obstructive pulmonary disease, unspecified; I45.10 Unspecified right bundle-branch block; I48.91 Unspecified atrial fibrillation; Z99.81 Dependence on supplemental oxygen
CPT/HCPCS: 71046; 80053; 82803; 83605; 83880; 85025; 85610; 87040; 87081; 87502; 87651 90; 93005; 94640 76; J1885; J7120

== ENCOUNTER 2017-07-24 06:43 | Inpatient (IN) | payer OTHER ==
[~2017-07-24] VITALS: Ht 170.2 cm; Wt 133.9 kg
[~2017-07-24 06:43] MED LIST changes: +TAMIFLU75 MG PO
[2017-07-24 07:37] LABS: BASOPHIL (%) 0.3 % (0-1); EOSINOPHIL (%) 0.4 % (0-5); EOSINOPHIL COUNT 0.1 K/uL (0-0.3); HEMATOCRIT 32.6 % (36.0-46.0); HEMOGLOBIN 10.8 G/DL (11.9-15.5); IMMATURE GRANULOCYTE (%) 0.3 % (0.0-0.7); LYMPHOCYTE (%) 5.3 % (15-42); LYMPHOCYTE COUNT 0.7 K/uL (1.0-2.8); MCH 31.4 PG (29.0-34.0); MCHC 33.1 G/DL (30.0-36.0); MCV 94.8 FL (83-99); MONOCYTE (%) 5.8 % (3-12); MONOCYTE COUNT 0.8 K/uL (0-0.8); NEUTROPHIL (%) 87.9 % (45-76); NEUTROPHIL COUNT 11.9 K/uL (1.8-6.4); PLATELET COUNT 191 K/uL (156-360); RBC DIS.WIDTH-CV 17.2 % (11.8-14.6); RBC DIS.WIDTH-SD 58.3 % (39-53); RED BLOOD COUNT 3.44 M/uL (3.80-5.20); WHITE BLOOD COUNT 13.5 K/uL (4.1-10.2)
[2017-07-24 07:43] LABS: INTER. NORMALIZED RATIO 1.4
[2017-07-24 07:46] LABS: PTT 34.8 SEC (25-37)
[2017-07-24 08:04] LABS: CHLORIDE 89 MEQ/L (99-109); CREATININE 6.4 MG/DL (0.6-1.3); GFR ESTIMATE (CALCULATED) 7 mL/min/; GLUCOSE 84 mg/dL (70-99); POTASSIUM 4.3 MEQ/L (3.7-5.4); SODIUM 135 MEQ/L (136-147); UREA NITROGEN (BUN) 56 mg/dL (9-23)
[2017-07-24 08:07] LABS: TROP-I INTERPRETATION NEGATIVE; TROPONIN-I 0.05 ng/mL (0.0-0.30)
[2017-07-24 08:40] LABS: DIGOXIN 0.4 ng/mL (0.8-2.0)
[2017-07-24] MEDS ORDERED: LOPRESSOR25 MG PO (11:04)
[2017-07-24] MEDS ORDERED: LASIX20 MG PO (11:07)
[2017-07-24] MEDS ORDERED: ASPIRIN81 M2 PO (11:09)
[2017-07-24] MEDS ORDERED: SYMBICORT60 INHALAT IH (11:23)
[2017-07-24 18:47] VITALS: BP 150/65
[2017-07-24 19:35] VITALS: BP 143/63
[2017-07-24 23:27] VITALS: BP 141/68
[2017-07-25 04:10] VITALS: BP 145/70
[2017-07-25 05:51] LABS: HEMATOCRIT 33.1 % (36.0-46.0); HEMOGLOBIN 10.6 G/DL (11.9-15.5); MCV 96.8 FL (83-99); PLATELET COUNT 146 K/uL (156-360); RBC DIS.WIDTH-CV 17.3 % (11.8-14.6); RBC DIS.WIDTH-SD 62.3 % (39-53); RED BLOOD COUNT 3.42 M/uL (3.80-5.20); WHITE BLOOD COUNT 9.2 K/uL (4.1-10.2)
[2017-07-25 06:31] LABS: CHLORIDE 95 MEQ/L (99-109); CREATININE 4.7 MG/DL (0.6-1.3); GFR ESTIMATE (CALCULATED) 10 mL/min/; GLUCOSE 167 mg/dL (70-99); POTASSIUM 4.7 MEQ/L (3.7-5.4); SODIUM 136 MEQ/L (136-147); UREA NITROGEN (BUN) 37 mg/dL (9-23)
[2017-07-25 07:37] VITALS: BP 140/78
[2017-07-25 11:50] VITALS: BP 147/69
[2017-07-25 15:42] VITALS: BP 163/76
[2017-07-25 19:43] VITALS: BP 143/74
[2017-07-25 22:49] VITALS: BP 134/78
[2017-07-26 04:16] VITALS: BP 147/69
[2017-07-26 07:32] LABS: CHLORIDE 92 MEQ/L (99-109); GLUCOSE 167 mg/dL (70-99); POTASSIUM 4.8 MEQ/L (3.7-5.4); SODIUM 134 MEQ/L (136-147); UREA NITROGEN (BUN) 49 mg/dL (9-23)
[2017-07-26 07:40] LABS: CREATININE 5.7 MG/DL (0.6-1.3); GFR ESTIMATE (CALCULATED) 8 mL/min/; VANCOMYCIN, TROUGH 9.2 MCG/ML (10-20)
[2017-07-26 09:01] LABS: BASOPHIL (%) 0 % (0-1); EOSINOPHIL (%) 0 % (0-5); HEMATOCRIT 33.2 % (36.0-46.0); HEMOGLOBIN 10.5 G/DL (11.9-15.5); IMMATURE GRANULOCYTE (%) 0.7 % (0.0-0.7); LYMPHOCYTE (%) 7.7 % (15-42); LYMPHOCYTE COUNT 0.6 K/uL (1.0-2.8); MCH 30.8 PG (29.0-34.0); MCHC 31.6 G/DL (30.0-36.0); MCV 97.4 FL (83-99); MONOCYTE (%) 4.8 % (3-12); MONOCYTE COUNT 0.4 K/uL (0-0.8); NEUTROPHIL (%) 86.8 % (45-76); NEUTROPHIL COUNT 7.1 K/uL (1.8-6.4); PLATELET COUNT 181 K/uL (156-360); RBC DIS.WIDTH-SD 61.2 % (39-53); RED BLOOD COUNT 3.41 M/uL (3.80-5.20); WHITE BLOOD COUNT 8.2 K/uL (4.1-10.2)
[2017-07-26 15:32] LABS: PHOSPHORUS 4.3 mg/dL (2.5-4.9)
[2017-07-26 16:30] VITALS: BP 153/79
[2017-07-26 19:56] VITALS: BP 128/64
[2017-07-27] VITALS: BP 136/65
[2017-07-27 07:13] VITALS: BP 144/65
[2017-07-27 11:08] VITALS: BP 136/63
[2017-07-27 11:36] VITALS: BP 136/63
[2017-07-27 15:11] VITALS: BP 136/63
[2017-07-27 19:39] VITALS: BP 125/64
[2017-07-28] VITALS (7 sets, daily range): BP systolic 127–162; BP diastolic 63–86
[2017-07-28 08:29] LABS: HEMOGLOBIN 10.6 G/DL (11.9-15.5); MCH 30.9 PG (29.0-34.0); MCHC 32.1 G/DL (30.0-36.0); MCV 96.2 FL (83-99); PLATELET COUNT 190 K/uL (156-360); RBC DIS.WIDTH-CV 16.8 % (11.8-14.6); RBC DIS.WIDTH-SD 58.5 % (39-53); RED BLOOD COUNT 3.43 M/uL (3.80-5.20); WHITE BLOOD COUNT 6.8 K/uL (4.1-10.2)
[2017-07-28 08:53] LABS: ALBUMIN 3.7 G/DL (3.2-4.8); CHLORIDE 94 MEQ/L (99-109); CREATININE 5.3 MG/DL (0.6-1.3); GFR ESTIMATE (CALCULATED) 9 mL/min/; GLUCOSE 179 mg/dL (70-99); PHOSPHORUS 3.9 mg/dL (2.5-4.9); POTASSIUM 4.5 MEQ/L (3.7-5.4); SODIUM 134 MEQ/L (136-147); UREA NITROGEN (BUN) 63 mg/dL (9-23)
[2017-07-28 09:01] LABS: VANCOMYCIN, TROUGH 19.5 MCG/ML (10-20)
[2017-07-29 03:54] VITALS: BP 142/76
[2017-07-29 08:03] VITALS: BP 145/72
[2017-07-29 12:35] VITALS: BP 163/76
== END 2017-07-29 15:11 | DRG 189 ==
LOC: EME → EDBD 06:43 → EDOF 10:13 → 4EAST 10:13 → ENRESERV 10:14 → 4EAST 18:13 → ENRESERV 07-25 16:50 → 5SOUTH 07-25 22:32 → ENPENDDIS 07-29 12:41 → 5SOUTH 07-29 15:11
PROVIDERS: Emergency Medicine; Hospitalist; Internal Medicine
PROC: 5A1D70Z Performance of Urinary Filtration, Intermittent, Less than 6 Hours Per Day (ICD-10-PCS; principal; 2017-07-24)
DX: J96.21 Acute and chronic respiratory failure with hypoxia (principal); I13.2 Hypertensive heart and chronic kidney disease with heart failure and with stage 5 chronic kidney disease, or end stage renal disease; I50.32 Chronic diastolic (congestive) heart failure; E11.22 Type 2 diabetes mellitus with diabetic chronic kidney disease; N18.6 End stage renal disease; J44.1 Chronic obstructive pulmonary disease with (acute) exacerbation; R50.9 Fever, unspecified; N25.81 Secondary hyperparathyroidism of renal origin; D63.1 Anemia in chronic kidney disease; E78.5 Hyperlipidemia, unspecified; F32.9 Major depressive disorder, single episode, unspecified; F41.9 Anxiety disorder, unspecified; I25.10 Atherosclerotic heart disease of native coronary artery without angina pectoris; K21.9 Gastro-esophageal reflux disease without esophagitis; I48.2 Chronic atrial fibrillation; E83.39 Other disorders of phosphorus metabolism; I89.0 Lymphedema, not elsewhere classified; G89.29 Other chronic pain; M54.9 Dorsalgia, unspecified; E66.9 Obesity, unspecified; I25.2 Old myocardial infarction; Z99.2 Dependence on renal dialysis; Q61.2 Polycystic kidney, adult type; Z68.42 Body mass index [BMI] 45.0-49.9, adult; Z95.5 Presence of coronary angioplasty implant and graft; Z99.81 Dependence on supplemental oxygen; Z79.02 Long term (current) use of antithrombotics/antiplatelets; Z87.891 Personal history of nicotine dependence; Z86.73 Personal history of transient ischemic attack (TIA), and cerebral infarction without residual deficits; Z79.82 Long term (current) use of aspirin
CPT/HCPCS: 71045; 71046; 80048; 80069; 80162; 80202; 81003; 82948; 83605; 84100; 84484; 85025; 85027; 85610; 85730; 87040; 87077; 87186; 87502; 87641; 87801; 93005; 94640; 94640 76; 94799; 99202; 99281; 99285; J1644; J1815; J2543; J2920; J3370; J7050

== ENCOUNTER 2017-08-13 11:30 | Inpatient (IN) | payer OTHER ==
[~2017-08-13] VITALS: Ht 170.2 cm; Wt 128.0 kg
[~2017-08-13 11:30] MED LIST changes: +LASIX20 MG PO; +SYMBICORT60 INHALAT IH
[2017-08-13 12:26] LABS: HEMATOCRIT 30.8 % (36.0-46.0); HEMOGLOBIN 9.9 G/DL (11.9-15.5); MCH 31.2 PG (29.0-34.0); MCHC 32.1 G/DL (30.0-36.0); MCV 97.2 FL (83-99); PLATELET COUNT 153 K/uL (156-360); RBC DIS.WIDTH-CV 16.8 % (11.8-14.6); RBC DIS.WIDTH-SD 59.4 % (39-53); RED BLOOD COUNT 3.17 M/uL (3.80-5.20); WHITE BLOOD COUNT 10.9 K/uL (4.1-10.2)
[2017-08-13 12:41] LABS: ALBUMIN 3.4 g/dL (3.2-4.8)
[2017-08-13 12:42] LABS: CHLORIDE 90 mEq/L (99-109); POTASSIUM 4.1 mEq/L (3.7-5.4); SODIUM 140 mEq/L (136-147)
[2017-08-13 12:44] LABS: GLUCOSE 103 mg/dL (70-99); TOTAL PROTEIN 6.3 g/dL (6.4-8.3)
[2017-08-13 12:46] LABS: TOTAL BILIRUBIN 1.7 mg/dL (0.0-1.0)
[2017-08-13 12:47] LABS: ALKALINE PHOSPHATASE 147 IU/L (3-129)
[2017-08-13 12:48] LABS: CREATININE 5.3 mg/dL (0.6-1.3); GFR ESTIMATE (CALCULATED) 9 mL/min/
[2017-08-13 12:49] LABS: AST (GOT) 18 IU/L (2-34); UREA NITROGEN (BUN) 41 mg/dL (9-23)
[2017-08-13 12:50] LABS: ALT (GPT) 13 IU/L (3-49)
[2017-08-13 12:51] LABS: LIPASE 22 U/L (1.0-51.0)
[2017-08-13] MEDS ORDERED: BREO ELLIPTA I1 EACH IH (16:34)
[2017-08-13] MEDS ORDERED: SENSIPAR30 MG PO (16:35)
[2017-08-13] MEDS ORDERED: CARDIZEM120 MG PO (16:36)
[2017-08-13 23:05] LABS: DIGOXIN < 0.3 ng/mL (0.8-2.0)
[2017-08-14] VITALS (8 sets, daily range): BP systolic 112–130; BP diastolic 57–73
[2017-08-14 01:58] LABS: C DIFF TOXIN POSITIVE (NEGATIVE)
[2017-08-14 07:04] LABS: CHLORIDE 90 MEQ/L (99-109); CREATININE 5.7 MG/DL (0.6-1.3); GFR ESTIMATE (CALCULATED) 8 mL/min/; GLUCOSE 79 mg/dL (70-99); POTASSIUM 4.2 MEQ/L (3.7-5.4); SODIUM 137 MEQ/L (136-147); UREA NITROGEN (BUN) 44 mg/dL (9-23)
[2017-08-14 09:52] LABS: BASOPHIL (%) 0.6 % (0-1); BASOPHIL COUNT 0.1 K/uL (0-0.1); EOSINOPHIL (%) 1.2 % (0-5); EOSINOPHIL COUNT 0.1 K/uL (0-0.3); HEMATOCRIT 30.2 % (36.0-46.0); HEMOGLOBIN 9.7 G/DL (11.9-15.5); IMMATURE GRANULOCYTE (%) 0.3 % (0.0-0.7); LYMPHOCYTE (%) 10.8 % (15-42); LYMPHOCYTE COUNT 1.1 K/uL (1.0-2.8); MCH 31.5 PG (29.0-34.0); MCHC 32.1 G/DL (30.0-36.0); MCV 98.1 FL (83-99); MONOCYTE (%) 8.6 % (3-12); MONOCYTE COUNT 0.8 K/uL (0-0.8); NEUTROPHIL (%) 78.5 % (45-76); NEUTROPHIL COUNT 7.7 K/uL (1.8-6.4); NRBC (%) 0.4 /100 WBC (0-0); PLATELET COUNT 176 K/uL (156-360); RBC DIS.WIDTH-CV 16.9 % (11.8-14.6); RBC DIS.WIDTH-SD 59.7 % (39-53); RED BLOOD COUNT 3.08 M/uL (3.80-5.20); WHITE BLOOD COUNT 9.8 K/uL (4.1-10.2)
[2017-08-15 00:56] VITALS: BP 137/67
[2017-08-15 04:23] VITALS: BP 110/68
[2017-08-15 06:31] LABS: HEMATOCRIT 31.4 % (36.0-46.0); MCHC 31.8 G/DL (30.0-36.0); MCV 97.2 FL (83-99); RBC DIS.WIDTH-CV 16.5 % (11.8-14.6); RBC DIS.WIDTH-SD 58.5 % (39-53); RED BLOOD COUNT 3.23 M/uL (3.80-5.20); WHITE BLOOD COUNT 13.2 K/uL (4.1-10.2)
[2017-08-15 06:46] LABS: PLATELET COUNT 238 K/uL (156-360)
[2017-08-15 07:15] LABS: CHLORIDE 92 MEQ/L (99-109); GFR ESTIMATE (CALCULATED) 10 mL/min/; GLUCOSE 91 mg/dL (70-99); POTASSIUM 3.7 MEQ/L (3.7-5.4); SODIUM 138 MEQ/L (136-147); UREA NITROGEN (BUN) 30 mg/dL (9-23)
[2017-08-15 07:24] LABS: CREATININE 4.7 MG/DL (0.6-1.3)
[2017-08-15 12:47] LABS: HEPATITIS B SURFACE ANTIGEN Nonreactive; HEPATITIS C ANTIBODY Nonreactive
[2017-08-15 12:48] LABS: ANTI-HEPATITIS A VIRUS (IGM) Nonreactive
[2017-08-15 12:49] LABS: ANTI-HEPATITIS B CORE (IGM) Nonreactive
[2017-08-15 15:00] VITALS: BP 129/58
[2017-08-15 22:05] VITALS: BP 110/52
[2017-08-16 00:15] VITALS: BP 94/47
[2017-08-16 04:30] VITALS: BP 123/65
[2017-08-16 06:49] LABS: BASOPHIL (%) 0.5 % (0-1); BASOPHIL COUNT 0.1 K/uL (0-0.1); EOSINOPHIL (%) 0.6 % (0-5); EOSINOPHIL COUNT 0.1 K/uL (0-0.3); HEMATOCRIT 30.3 % (36.0-46.0); HEMOGLOBIN 9.4 G/DL (11.9-15.5); IMMATURE GRANULOCYTE (%) 0.4 % (0.0-0.7); LYMPHOCYTE (%) 8.9 % (15-42); LYMPHOCYTE COUNT 1.1 K/uL (1.0-2.8); MCH 30.4 PG (29.0-34.0); MCV 98.1 FL (83-99); MONOCYTE (%) 11.3 % (3-12); MONOCYTE COUNT 1.4 K/uL (0-0.8); NEUTROPHIL (%) 78.3 % (45-76); NEUTROPHIL COUNT 9.7 K/uL (1.8-6.4); PLATELET COUNT 260 K/uL (156-360); RBC DIS.WIDTH-CV 16.4 % (11.8-14.6); RBC DIS.WIDTH-SD 57.8 % (39-53); RED BLOOD COUNT 3.09 M/uL (3.80-5.20); WHITE BLOOD COUNT 12.4 K/uL (4.1-10.2)
[2017-08-16 07:11] LABS: CHLORIDE 94 MEQ/L (99-109); GFR ESTIMATE (CALCULATED) 12 mL/min/; GLUCOSE 103 mg/dL (70-99); POTASSIUM 3.5 MEQ/L (3.7-5.4); SODIUM 137 MEQ/L (136-147); UREA NITROGEN (BUN) 23 mg/dL (9-23)
[2017-08-16 08:30] VITALS: BP 119/63
[2017-08-16 12:14] VITALS: BP 123/56
[2017-08-16 14:10] LABS: TYPE OF FLUID PERITONEAL
[2017-08-16 14:42] LABS: APPEARANCE CLOUDY-PINK; BODY FLUID RBC'S 22000 /MM^3 (0-100); BODY FLUID WBC'S 1759 /MM^3 (0-500)
[2017-08-16 14:43] LABS: BODY FLUID GLUCOSE 134 MG/DL; BODY FLUID LDH 176 IU/L; BODY FLUID PROTEIN 3.7 G/DL
[2017-08-16 15:29] LABS: BODY FLUID EOSINOPHILS 0 % (0-25); MONONUCLEAR WBC'S 16 %; POLYNUCLEAR WBC'S 84 % (0-25)
[2017-08-16 16:45] VITALS: BP 98/58
[2017-08-16 17:27] LABS: ALBUMIN 2.8 G/DL (3.2-4.8)
[2017-08-16 17:47] LABS: PHOSPHORUS 2.2 mg/dL (2.5-4.9)
[2017-08-16 20:06] VITALS: BP 126/58
[2017-08-17] VITALS (7 sets, daily range): BP systolic 92–124; BP diastolic 48–72
[2017-08-17 06:03] LABS: HEMATOCRIT 27.9 % (36.0-46.0); HEMOGLOBIN 9.1 G/DL (11.9-15.5); MCH 31.3 PG (29.0-34.0); MCHC 32.6 G/DL (30.0-36.0); MCV 95.9 FL (83-99); PLATELET COUNT 278 K/uL (156-360); RBC DIS.WIDTH-CV 16.2 % (11.8-14.6); RBC DIS.WIDTH-SD 57.1 % (39-53); RED BLOOD COUNT 2.91 M/uL (3.80-5.20); WHITE BLOOD COUNT 11.1 K/uL (4.1-10.2)
[2017-08-17 06:25] LABS: CHLORIDE 93 MEQ/L (99-109); GFR ESTIMATE (CALCULATED) 10 mL/min/; GLUCOSE 103 mg/dL (70-99); POTASSIUM 3.4 MEQ/L (3.7-5.4); SODIUM 136 MEQ/L (136-147); UREA NITROGEN (BUN) 28 mg/dL (9-23)
[2017-08-17 06:28] LABS: CREATININE 4.9 MG/DL (0.6-1.3)
[2017-08-17 07:26] LABS: BASOPHIL (%) 0.4 % (0-1); EOSINOPHIL (%) 1.1 % (0-5); EOSINOPHIL COUNT 0.1 K/uL (0-0.3); HEMATOLOGY COMMENT 1 SMEAR COMPATIBLE; IMMATURE GRANULOCYTE (%) 0.5 % (0.0-0.7); LYMPHOCYTE (%) 10.5 % (15-42); LYMPHOCYTE COUNT 1.2 K/uL (1.0-2.8); MONOCYTE (%) 12.6 % (3-12); MONOCYTE COUNT 1.4 K/uL (0-0.8); NEUTROPHIL (%) 74.9 % (45-76); NEUTROPHIL COUNT 8.3 K/uL (1.8-6.4)
[2017-08-17 13:28] LABS: ANTI-SMOOTH MUSCLE (Actin)+ <20 U (<20)
[2017-08-17 13:49] LABS: MITOCHONDRIAL (M2) ANTIBODIES+ <=20.0 U (<=20.0)
[2017-08-18 03:30] VITALS: BP 96/52
[2017-08-18 05:38] LABS: BASOPHIL (%) 0.5 % (0-1); BASOPHIL COUNT 0.1 K/uL (0-0.1); EOSINOPHIL (%) 1.6 % (0-5); EOSINOPHIL COUNT 0.2 K/uL (0-0.3); HEMATOCRIT 29.4 % (36.0-46.0); HEMOGLOBIN 9.3 G/DL (11.9-15.5); IMMATURE GRANULOCYTE (%) 0.4 % (0.0-0.7); LYMPHOCYTE (%) 8.5 % (15-42); LYMPHOCYTE COUNT 0.9 K/uL (1.0-2.8); MCH 30.8 PG (29.0-34.0); MCHC 31.6 G/DL (30.0-36.0); MCV 97.4 FL (83-99); MONOCYTE (%) 14.9 % (3-12); MONOCYTE COUNT 1.6 K/uL (0-0.8); NEUTROPHIL (%) 74.1 % (45-76); NEUTROPHIL COUNT 7.7 K/uL (1.8-6.4); RBC DIS.WIDTH-CV 16.6 % (11.8-14.6); RBC DIS.WIDTH-SD 58.5 % (39-53); RED BLOOD COUNT 3.02 M/uL (3.80-5.20); WHITE BLOOD COUNT 10.4 K/uL (4.1-10.2)
[2017-08-18 06:14] LABS: CHLORIDE 94 MEQ/L (99-109); GFR ESTIMATE (CALCULATED) 8 mL/min/; GLUCOSE 90 mg/dL (70-99); POTASSIUM 3.8 MEQ/L (3.7-5.4); SODIUM 136 MEQ/L (136-147); UREA NITROGEN (BUN) 35 mg/dL (9-23)
[2017-08-18 06:15] LABS: CREATININE 5.8 MG/DL (0.6-1.3)
[2017-08-18 07:13] VITALS: BP 111/71
[2017-08-18 09:47] LABS: PLAT.SUFFICIENCY ADEQUATE; PLATELET COUNT 319 K/uL (156-360)
[2017-08-18 13:45] VITALS: BP 115/53
[2017-08-18 16:26] VITALS: BP 120/75
[2017-08-18 19:30] VITALS: BP 108/58
[2017-08-18 23:00] VITALS: BP 116/54
[2017-08-19 04:05] VITALS: BP 123/74
[2017-08-19 10:15] VITALS: BP 118/60
[2017-08-19 12:54] VITALS: BP 140/80
[2017-08-19 16:20] VITALS: BP 130/66
[2017-08-19 20:30] VITALS: BP 137/87
[2017-08-20 00:06] VITALS: BP 136/76
[2017-08-20 05:06] VITALS: BP 108/65
[2017-08-20 07:50] VITALS: BP 129/64
[2017-08-20 08:23] LABS: HEMATOCRIT 29.4 % (36.0-46.0); HEMOGLOBIN 9.3 G/DL (11.9-15.5); MCH 30.4 PG (29.0-34.0); MCHC 31.6 G/DL (30.0-36.0); MCV 96.1 FL (83-99); PLATELET COUNT 324 K/uL (156-360); RBC DIS.WIDTH-CV 16.4 % (11.8-14.6); RBC DIS.WIDTH-SD 57.5 % (39-53); RED BLOOD COUNT 3.06 M/uL (3.80-5.20); WHITE BLOOD COUNT 7.5 K/uL (4.1-10.2)
[2017-08-20 08:40] LABS: ALBUMIN 2.6 G/DL (3.2-4.8); CHLORIDE 95 MEQ/L (99-109); GFR ESTIMATE (CALCULATED) 9 mL/min/; GLUCOSE 108 mg/dL (70-99); PHOSPHORUS 2.4 mg/dL (2.5-4.9); POTASSIUM 3.3 MEQ/L (3.7-5.4); SODIUM 136 MEQ/L (136-147); UREA NITROGEN (BUN) 30 mg/dL (9-23)
[2017-08-20 15:45] VITALS: BP 130/56
[2017-08-20 19:00] VITALS: BP 105/59
[2017-08-20 23:55] VITALS: BP 113/57
[2017-08-21 04:26] VITALS: BP 137/74
[2017-08-21 06:12] LABS: CHLORIDE 96 MEQ/L (99-109); GLUCOSE 112 mg/dL (70-99); SODIUM 137 MEQ/L (136-147); UREA NITROGEN (BUN) 23 mg/dL (9-23)
[2017-08-21 06:15] LABS: CREATININE 4.1 MG/DL (0.6-1.3); GFR ESTIMATE (CALCULATED) 12 mL/min/; POTASSIUM 4.1 MEQ/L (3.7-5.4)
[2017-08-21 07:07] VITALS: BP 105/54
[2017-08-21] MEDS ORDERED: METRONIDAZOLE500 MG PO (10:40)
[2017-08-21] MEDS ORDERED: VANCOMYCIN HCL250 MG PO (10:41)
[2017-08-21 12:00] VITALS: BP 110/78
== END 2017-08-21 13:25 | DRG 871 ==
LOC: EME 11:30 → 2EAST 15:26 → EDOF 15:26 → ENRESERV 15:37 → 2EAST 23:33 → 4EAST 08-14 12:42 → 2EAST 08-14 16:26 → ENRESERV 08-14 16:30 → 4EAST 08-14 18:05 → ENRESERV 08-18 22:40 → 5WEST 08-18 23:32 → ENRESERV 08-21 07:23 → 4SOUTH 08-21 07:37
PROVIDERS: Family Medicine; Internal Medicine; Internal Medicine Gastroenterology; Internal Medicine Nephrology; Nurse Practitioner Family
PROC: 5A1D70Z Performance of Urinary Filtration, Intermittent, Less than 6 Hours Per Day (ICD-10-PCS; principal; 2017-08-14)
PROC: 0W9G3ZZ Drainage of Peritoneal Cavity, Percutaneous Approach (ICD-10-PCS; 2017-08-16)
DX: A41.4 Sepsis due to anaerobes (principal); N18.6 End stage renal disease; A04.72 Enterocolitis due to Clostridium difficile, not specified as recurrent; J96.10 Chronic respiratory failure, unspecified whether with hypoxia or hypercapnia; J44.9 Chronic obstructive pulmonary disease, unspecified; I13.2 Hypertensive heart and chronic kidney disease with heart failure and with stage 5 chronic kidney disease, or end stage renal disease; E11.22 Type 2 diabetes mellitus with diabetic chronic kidney disease; E66.01 Morbid (severe) obesity due to excess calories; I50.32 Chronic diastolic (congestive) heart failure; Z99.81 Dependence on supplemental oxygen; K74.60 Unspecified cirrhosis of liver; R18.8 Other ascites; I25.10 Atherosclerotic heart disease of native coronary artery without angina pectoris; E78.5 Hyperlipidemia, unspecified; Z99.2 Dependence on renal dialysis; Z95.5 Presence of coronary angioplasty implant and graft; K76.6 Portal hypertension; D63.1 Anemia in chronic kidney disease; Q61.3 Polycystic kidney, unspecified; N25.81 Secondary hyperparathyroidism of renal origin; E83.39 Other disorders of phosphorus metabolism; I48.2 Chronic atrial fibrillation; I87.8 Other specified disorders of veins; I83.11 Varicose veins of right lower extremity with inflammation; E86.0 Dehydration; E87.2 Acidosis; E87.6 Hypokalemia; G47.33 Obstructive sleep apnea (adult) (pediatric); Z68.42 Body mass index [BMI] 45.0-49.9, adult; Z86.73 Personal history of transient ischemic attack (TIA), and cerebral infarction without residual deficits; Z82.71 Family history of polycystic kidney; Z79.02 Long term (current) use of antithrombotics/antiplatelets
CPT/HCPCS: 49083; 74176; 80048; 80053; 80069; 80074; 80162; 82040; 82330; 82945; 83516 90; 83605; 83615 91; 83630; 83690; 84100; 84157; 85025; 85027; 86038; 86256 90; 87040; 87070; 87075; 87177; 87205; 87493; 87506; 89051; 93005; 93970; 94640; 94640 76; 94799; 99202; 99281; 99285; G0378; J0881; J1160; J1644; J1940; J7120; S0030

== ENCOUNTER 2017-11-04 16:17 | Inpatient (IN) | payer OTHER ==
[~2017-11-04] VITALS: Ht 170.2 cm; Wt 127.2 kg
[~2017-11-04 16:17] MED LIST changes: +BREO ELLIPTA I1 EACH IH; +CARDIZEM120 MG PO; +VANCOMYCIN HCL250 MG PO
[2017-11-04 17:15] LABS: BASOPHIL (%) 0.3 % (0-1); EOSINOPHIL COUNT 0.2 K/uL (0-0.3); HEMATOCRIT 26.1 % (36.0-46.0); HEMOGLOBIN 7.9 G/DL (11.9-15.5); IMMATURE GRANULOCYTE (%) 0.4 % (0.0-0.7); LYMPHOCYTE (%) 9.8 % (15-42); LYMPHOCYTE COUNT 1.4 K/uL (1.0-2.8); MCH 28.6 PG (29.0-34.0); MCHC 30.3 G/DL (30.0-36.0); MCV 94.6 FL (83-99); MONOCYTE (%) 7.4 % (3-12); MONOCYTE COUNT 1.1 K/uL (0-0.8); NEUTROPHIL (%) 81.1 % (45-76); PLATELET COUNT 267 K/uL (156-360); RBC DIS.WIDTH-CV 15.9 % (11.8-14.6); RBC DIS.WIDTH-SD 55.5 % (39-53); RED BLOOD COUNT 2.76 M/uL (3.80-5.20); WHITE BLOOD COUNT 14.8 K/uL (4.1-10.2)
[2017-11-04 17:25] LABS: ALBUMIN 2.1 g/dL (3.2-4.8)
[2017-11-04 17:26] LABS: CHLORIDE 92 mEq/L (99-109); SODIUM 137 mEq/L (136-147)
[2017-11-04 17:28] LABS: GLUCOSE 136 mg/dL (70-99); TOTAL PROTEIN 4.7 g/dL (6.4-8.3)
[2017-11-04 17:30] LABS: TOTAL BILIRUBIN 0.8 mg/dL (0.0-1.0)
[2017-11-04 17:31] LABS: ALKALINE PHOSPHATASE 100 IU/L (3-129)
[2017-11-04 17:32] LABS: CREATININE 4.1 mg/dL (0.6-1.3); GFR ESTIMATE (CALCULATED) 12 mL/min/
[2017-11-04 17:33] LABS: AST (GOT) 11 IU/L (2-34); UREA NITROGEN (BUN) 21 mg/dL (9-23)
[2017-11-04 17:34] LABS: ALT (GPT) 8 IU/L (3-49)
[2017-11-04 17:39] LABS: TROP-I INTERPRETATION NEGATIVE; TROPONIN-I 0.02 ng/mL (0.0-0.30)
[2017-11-04] MEDS ORDERED: LEVOTHYROXINE50 MCG PO (19:19)
[2017-11-04] MEDS ORDERED: LEVOTHYROXINE25 MCG PO (19:26)
[2017-11-04] MEDS ORDERED: LYRICA50 MG PO (19:28)
[2017-11-04] MEDS ORDERED: SPIRIVA18 MCG IH (21:00)
[2017-11-04] MEDS ORDERED: VALSARTAN320 MG PO (21:02)
[2017-11-04] MEDS ORDERED: VANCOCIN HCL125 MG PO (21:07)
[2017-11-04] MEDS ORDERED: FLORASTOR250 MG PO (21:09)
[2017-11-04 21:28] VITALS: BP 110/75
[2017-11-04 21:29] VITALS: BP 110/75
[2017-11-04 22:02] VITALS: BP 115/53
[2017-11-04 23:02] VITALS: BP 105/65
[2017-11-04 23:28] VITALS: BP 97/72
[2017-11-05] VITALS (29 sets, daily range): BP systolic 70–114; BP diastolic 41–74
[2017-11-05 07:44] LABS: BASOPHIL (%) 0.4 % (0-1); BASOPHIL COUNT 0.1 K/uL (0-0.1); EOSINOPHIL (%) 1.3 % (0-5); EOSINOPHIL COUNT 0.2 K/uL (0-0.3); HEMATOCRIT 27.1 % (36.0-46.0); HEMOGLOBIN 8.2 G/DL (11.9-15.5); IMMATURE GRANULOCYTE (%) 0.3 % (0.0-0.7); LYMPHOCYTE (%) 8.8 % (15-42); LYMPHOCYTE COUNT 1.6 K/uL (1.0-2.8); MCH 28.5 PG (29.0-34.0); MCHC 30.3 G/DL (30.0-36.0); MCV 94.1 FL (83-99); MONOCYTE (%) 7.1 % (3-12); MONOCYTE COUNT 1.3 K/uL (0-0.8); NEUTROPHIL (%) 82.1 % (45-76); NEUTROPHIL COUNT 15.1 K/uL (1.8-6.4); PLATELET COUNT 272 K/uL (156-360); RBC DIS.WIDTH-CV 15.7 % (11.8-14.6); RBC DIS.WIDTH-SD 54.3 % (39-53); RED BLOOD COUNT 2.88 M/uL (3.80-5.20); WHITE BLOOD COUNT 18.4 K/uL (4.1-10.2)
[2017-11-05 08:06] LABS: CHLORIDE 93 MEQ/L (99-109); CREATININE 4.3 MG/DL (0.6-1.3); GFR ESTIMATE (CALCULATED) 11 mL/min/; GLUCOSE 107 mg/dL (70-99); MAGNESIUM 1.4 mg/dl (1.3-2.7); PHOSPHORUS 2.8 mg/dL (2.5-4.9); POTASSIUM 3.3 MEQ/L (3.7-5.4); SODIUM 137 MEQ/L (136-147); UREA NITROGEN (BUN) 24 mg/dL (9-23)
[2017-11-05 08:46] LABS: DIGOXIN < 0.3 ng/mL (0.8-2.0)
[2017-11-05 19:33] LABS: INTER. NORMALIZED RATIO 1.5
[2017-11-05 19:35] LABS: PTT 31.9 SEC (25-37)
[2017-11-06] VITALS (21 sets, daily range): BP systolic 86–123; BP diastolic 52–82
[2017-11-06 05:25] LABS: BASOPHIL (%) 0.8 % (0-1); BASOPHIL COUNT 0.1 K/uL (0-0.1); EOSINOPHIL (%) 2.2 % (0-5); EOSINOPHIL COUNT 0.2 K/uL (0-0.3); HEMATOCRIT 26.6 % (36.0-46.0); HEMOGLOBIN 8.1 G/DL (11.9-15.5); IMMATURE GRANULOCYTE (%) 0.5 % (0.0-0.7); LYMPHOCYTE (%) 9.9 % (15-42); MCH 28.2 PG (29.0-34.0); MCHC 30.5 G/DL (30.0-36.0); MCV 92.7 FL (83-99); MONOCYTE (%) 6.8 % (3-12); MONOCYTE COUNT 0.7 K/uL (0-0.8); NEUTROPHIL (%) 79.8 % (45-76); NEUTROPHIL COUNT 8.3 K/uL (1.8-6.4); PLATELET COUNT 268 K/uL (156-360); RBC DIS.WIDTH-CV 15.9 % (11.8-14.6); RBC DIS.WIDTH-SD 53.2 % (39-53); RED BLOOD COUNT 2.87 M/uL (3.80-5.20); WHITE BLOOD COUNT 10.4 K/uL (4.1-10.2)
[2017-11-06 07:03] LABS: ALKALINE PHOSPHATASE 83 IU/L (3-129); ALT (GPT) 10 IU/L (3-49); AST (GOT) 13 IU/L (2-34); CHLORIDE 91 MEQ/L (99-109); CREATININE 4.8 MG/DL (0.6-1.3); DIRECT BILIRUBIN 0.3 mg/dL (0.0-0.3); GFR ESTIMATE (CALCULATED) 10 mL/min/; GLUCOSE 128 mg/dL (70-99); IRON 22 MCG/DL (35-150); POTASSIUM 3.6 MEQ/L (3.7-5.4); SODIUM 135 MEQ/L (136-147); TOTAL BILIRUBIN 0.7 MG/DL (0.0-1.0); TOTAL PROTEIN 4.8 G/DL (6.4-8.3); UREA NITROGEN (BUN) 26 mg/dL (9-23)
[2017-11-06 08:17] LABS: FERRITIN 1225 NG/ML (10-291)
[2017-11-06 09:23] LABS: TRANSFERRIN (TIBC) < 75 mg/dL (215-380); TRANSFERRIN SATUR. 20 % (20-55)
[2017-11-06 11:15] LABS: HEPATITIS B SURFACE ANTIGEN Nonreactive
[2017-11-06 11:16] LABS: HEPATITIS C ANTIBODY Nonreactive
[2017-11-06 11:17] LABS: ANTI-HEPATITIS A VIRUS (IGM) Nonreactive
[2017-11-06 11:18] LABS: ANTI-HEPATITIS B CORE (IGM) Nonreactive
[2017-11-06 15:18] LABS: TYPE OF FLUID PARACENTESIS
[2017-11-06 19:07] LABS: APPEARANCE CLEAR/YELLOW; BODY FLUID EOSINOPHILS 3 % (0-25); BODY FLUID RBC'S 1000 /MM^3 (0-100); BODY FLUID WBC'S 166 /MM^3 (0-500); MONONUCLEAR WBC'S 72 %; POLYNUCLEAR WBC'S 25 % (0-25)
[2017-11-07] VITALS (36 sets, daily range): BP systolic 1–129; BP diastolic 38–79
[2017-11-07 09:10] LABS: HEMOGLOBIN 8.4 G/DL (11.9-15.5); MCH 28.5 PG (29.0-34.0); MCHC 31.1 G/DL (30.0-36.0); MCV 91.5 FL (83-99); PLATELET COUNT 295 K/uL (156-360); RBC DIS.WIDTH-CV 16.2 % (11.8-14.6); RBC DIS.WIDTH-SD 54.4 % (39-53); RED BLOOD COUNT 2.95 M/uL (3.80-5.20); WHITE BLOOD COUNT 7.4 K/uL (4.1-10.2)
[2017-11-07 09:25] LABS: ALBUMIN 2.2 G/DL (3.2-4.8); CHLORIDE 93 MEQ/L (99-109); CREATININE 5.1 MG/DL (0.6-1.3); GFR ESTIMATE (CALCULATED) 9 mL/min/; GLUCOSE 118 mg/dL (70-99); PHOSPHORUS 3.5 mg/dL (2.5-4.9); POTASSIUM 3.5 MEQ/L (3.7-5.4); SODIUM 135 MEQ/L (136-147); UREA NITROGEN (BUN) 29 mg/dL (9-23)
[2017-11-08] VITALS (29 sets, daily range): BP systolic 75–145; BP diastolic 44–90
[2017-11-08 07:10] LABS: HEMATOCRIT 29.5 % (36.0-46.0); HEMOGLOBIN 8.8 G/DL (11.9-15.5); MCH 27.9 PG (29.0-34.0); MCHC 29.8 G/DL (30.0-36.0); MCV 93.7 FL (83-99); PLATELET COUNT 281 K/uL (156-360); RBC DIS.WIDTH-CV 16.3 % (11.8-14.6); RBC DIS.WIDTH-SD 54.8 % (39-53); RED BLOOD COUNT 3.15 M/uL (3.80-5.20); WHITE BLOOD COUNT 6.9 K/uL (4.1-10.2)
[2017-11-08 07:49] LABS: CHLORIDE 96 MEQ/L (99-109); GFR ESTIMATE (CALCULATED) 12 mL/min/; GLUCOSE 106 mg/dL (70-99); POTASSIUM 3.7 MEQ/L (3.7-5.4); SODIUM 137 MEQ/L (136-147); UREA NITROGEN (BUN) 22 mg/dL (9-23)
[2017-11-08 07:51] LABS: CREATININE 4.1 MG/DL (0.6-1.3)
[2017-11-09] VITALS (18 sets, daily range): BP systolic 72–124; BP diastolic 48–81
[2017-11-09 06:18] LABS: HEMATOCRIT 28.2 % (36.0-46.0); HEMOGLOBIN 8.6 G/DL (11.9-15.5); MCH 28.5 PG (29.0-34.0); MCHC 30.5 G/DL (30.0-36.0); MCV 93.4 FL (83-99); PLATELET COUNT 283 K/uL (156-360); RBC DIS.WIDTH-CV 16.4 % (11.8-14.6); RED BLOOD COUNT 3.02 M/uL (3.80-5.20); WHITE BLOOD COUNT 6.8 K/uL (4.1-10.2)
[2017-11-09 06:42] LABS: CHLORIDE 97 MEQ/L (99-109); CREATININE 4.6 MG/DL (0.6-1.3); GFR ESTIMATE (CALCULATED) 10 mL/min/; GLUCOSE 107 mg/dL (70-99); MAGNESIUM 1.4 mg/dl (1.3-2.7); PHOSPHORUS 4.4 mg/dL (2.5-4.9); POTASSIUM 3.9 MEQ/L (3.7-5.4); SODIUM 136 MEQ/L (136-147); UREA NITROGEN (BUN) 26 mg/dL (9-23)
[2017-11-09 12:09] LABS: THYROTROPIN (TSH) 7.5 MIU/L (0.4-5.5)
[2017-11-10 00:44] VITALS: BP 98/57
[2017-11-10 04:55] VITALS: BP 103/56
[2017-11-10 05:36] LABS: HEMATOCRIT 27.5 % (36.0-46.0); HEMOGLOBIN 8.5 G/DL (11.9-15.5); MCH 28.5 PG (29.0-34.0); MCHC 30.9 G/DL (30.0-36.0); MCV 92.3 FL (83-99); PLATELET COUNT 322 K/uL (156-360); RBC DIS.WIDTH-CV 16.4 % (11.8-14.6); RBC DIS.WIDTH-SD 54.5 % (39-53); RED BLOOD COUNT 2.98 M/uL (3.80-5.20); WHITE BLOOD COUNT 8.2 K/uL (4.1-10.2)
[2017-11-10 05:51] LABS: CHLORIDE 98 MEQ/L (99-109); MAGNESIUM 1.3 mg/dl (1.3-2.7); POTASSIUM 3.9 MEQ/L (3.7-5.4); SODIUM 135 MEQ/L (136-147)
[2017-11-10 05:58] LABS: CREATININE 5.5 MG/DL (0.6-1.3); GFR ESTIMATE (CALCULATED) 8 mL/min/; GLUCOSE 101 mg/dL (70-99); HIGH-SENS C-REACTIVE PROTEIN 2.86 MG/DL (0.02-0.20); PHOSPHORUS 4.4 mg/dL (2.5-4.9); UREA NITROGEN (BUN) 32 mg/dL (9-23)
[2017-11-10 07:20] VITALS: BP 96/60
[2017-11-10 13:23] VITALS: BP 107/55
[2017-11-10 15:17] VITALS: BP 94/53
[2017-11-10 19:03] VITALS: BP 95/60
[2017-11-11] VITALS (7 sets, daily range): BP systolic 94–107; BP diastolic 53–62
[2017-11-11 05:32] LABS: HEMATOCRIT 28.4 % (36.0-46.0); HEMOGLOBIN 8.7 G/DL (11.9-15.5); MCH 28.8 PG (29.0-34.0); MCHC 30.6 G/DL (30.0-36.0); PLATELET COUNT 342 K/uL (156-360); RBC DIS.WIDTH-CV 16.9 % (11.8-14.6); RED BLOOD COUNT 3.02 M/uL (3.80-5.20); WHITE BLOOD COUNT 8.7 K/uL (4.1-10.2)
[2017-11-11 06:11] LABS: CHLORIDE 99 MEQ/L (99-109); GFR ESTIMATE (CALCULATED) 12 mL/min/; GLUCOSE 97 mg/dL (70-99); MAGNESIUM 1.4 mg/dl (1.3-2.7); PHOSPHORUS 3.6 mg/dL (2.5-4.9); POTASSIUM 3.6 MEQ/L (3.7-5.4); SODIUM 136 MEQ/L (136-147); UREA NITROGEN (BUN) 22 mg/dL (9-23)
[2017-11-11 06:12] LABS: CREATININE 4.2 MG/DL (0.6-1.3)
[2017-11-11 07:14] LABS: ALBUMIN 2.2 G/DL (3.2-4.8); ALKALINE PHOSPHATASE 65 IU/L (3-129); ALT (GPT) 7 IU/L (3-49); AST (GOT) 10 IU/L (2-34); DIRECT BILIRUBIN 0.1 mg/dL (0.0-0.3); TOTAL PROTEIN 4.9 G/DL (6.4-8.3)
[2017-11-11 07:19] LABS: TOTAL BILIRUBIN 0.4 MG/DL (0.0-1.0)
[2017-11-12] VITALS (7 sets, daily range): BP systolic 82–112; BP diastolic 51–64
[2017-11-12 05:59] LABS: HEMOGLOBIN 8.7 G/DL (11.9-15.5); MCH 28.4 PG (29.0-34.0); MCV 94.8 FL (83-99); PLATELET COUNT 349 K/uL (156-360); RBC DIS.WIDTH-CV 17.2 % (11.8-14.6); RED BLOOD COUNT 3.06 M/uL (3.80-5.20)
[2017-11-12 06:23] LABS: CHLORIDE 100 MEQ/L (99-109); CREATININE 4.7 MG/DL (0.6-1.3); GFR ESTIMATE (CALCULATED) 10 mL/min/; GLUCOSE 86 mg/dL (70-99); MAGNESIUM 1.4 mg/dl (1.3-2.7); PHOSPHORUS 3.7 mg/dL (2.5-4.9); POTASSIUM 3.8 MEQ/L (3.7-5.4); SODIUM 137 MEQ/L (136-147); UREA NITROGEN (BUN) 27 mg/dL (9-23)
[2017-11-13 05:35] VITALS: BP 95/52
[2017-11-13 05:54] LABS: HEMATOCRIT 28.4 % (36.0-46.0); HEMOGLOBIN 8.3 G/DL (11.9-15.5); MCH 27.7 PG (29.0-34.0); MCHC 29.2 G/DL (30.0-36.0); MCV 94.7 FL (83-99); PLATELET COUNT 344 K/uL (156-360); RBC DIS.WIDTH-CV 17.3 % (11.8-14.6); RBC DIS.WIDTH-SD 56.4 % (39-53); WHITE BLOOD COUNT 6.9 K/uL (4.1-10.2)
[2017-11-13 06:13] LABS: CHLORIDE 99 MEQ/L (99-109); CREATININE 4.8 MG/DL (0.6-1.3); GFR ESTIMATE (CALCULATED) 10 mL/min/; GLUCOSE 84 mg/dL (70-99); MAGNESIUM 1.4 mg/dl (1.3-2.7); POTASSIUM 3.9 MEQ/L (3.7-5.4); SODIUM 136 MEQ/L (136-147); UREA NITROGEN (BUN) 25 mg/dL (9-23)
[2017-11-13 08:31] VITALS: BP 104/58
[2017-11-13] MEDS ORDERED: MIDODRINE HCL5 MG PO (11:13)
[2017-11-13] MEDS ORDERED: CHOLESTYRAMINE P4 GM PO (11:13)
[2017-11-13] MEDS ORDERED: VANCOCIN HCL125 MG PO (11:16)
[2017-11-13 17:18] VITALS: BP 98/62
[2017-11-13 20:45] VITALS: BP 97/56
[2017-11-14 00:15] VITALS: BP 97/61
[2017-11-14 03:56] VITALS: BP 98/64
[2017-11-14 07:12] VITALS: BP 123/70
[2017-11-14 07:59] LABS: HEMATOCRIT 28.2 % (36.0-46.0); HEMOGLOBIN 8.5 G/DL (11.9-15.5); MCH 28.3 PG (29.0-34.0); MCHC 30.1 G/DL (30.0-36.0); PLATELET COUNT 335 K/uL (156-360); RBC DIS.WIDTH-CV 18.1 % (11.8-14.6); RBC DIS.WIDTH-SD 57.4 % (39-53)
[2017-11-14 08:17] LABS: CHLORIDE 100 MEQ/L (99-109); POTASSIUM 3.9 MEQ/L (3.7-5.4); SODIUM 135 MEQ/L (136-147)
[2017-11-14 09:31] LABS: CREATININE 5.2 MG/DL (0.6-1.3); GFR ESTIMATE (CALCULATED) 9 mL/min/; MAGNESIUM 1.3 mg/dl (1.3-2.7); PHOSPHORUS 4.2 mg/dL (2.5-4.9); UREA NITROGEN (BUN) 28 mg/dL (9-23)
[2017-11-14 09:33] LABS: GLUCOSE 110 mg/dL (70-99)
[2017-11-14] MEDS ORDERED: VANCOCIN HCL125 MG PO (12:37)
[2017-11-14 15:12] VITALS: BP 123/66
== END 2017-11-14 15:38 | DRG 871 ==
LOC: EME 16:17 → 5SOUTH 19:36 → 4EAST 19:36 → EDOF 19:36 → 4WEST 19:36 → ENRESERV 19:38 → ENRESERVDT 19:58 → ENRESERVTM 19:58 → ENRESERV 19:58 → 4WEST 21:06 → ENRESERV 11-09 12:09 → 4EAST 11-09 15:42 → ENRESERV 11-13 22:00 → 5SOUTH 11-14 00:02
PROVIDERS: Emergency Medicine; Internal Medicine; Internal Medicine Critical Care Medicine; Internal Medicine Gastroenterology; Internal Medicine Nephrology; Specialist
PROC: 06HM33Z Insertion of Infusion Device into Right Femoral Vein, Percutaneous Approach (ICD-10-PCS; principal; 2017-11-05)
PROC: 0W9G3ZZ Drainage of Peritoneal Cavity, Percutaneous Approach (ICD-10-PCS; 2017-11-06)
PROC: 5A1D70Z Performance of Urinary Filtration, Intermittent, Less than 6 Hours Per Day (ICD-10-PCS; 2017-11-07)
PROC: 0W9G3ZZ Drainage of Peritoneal Cavity, Percutaneous Approach (ICD-10-PCS; 2017-11-11)
DX: A41.9 Sepsis, unspecified organism (principal); R65.21 Severe sepsis with septic shock; A04.71 Enterocolitis due to Clostridium difficile, recurrent; E87.2 Acidosis; K74.60 Unspecified cirrhosis of liver; R18.8 Other ascites; K76.6 Portal hypertension; I13.2 Hypertensive heart and chronic kidney disease with heart failure and with stage 5 chronic kidney disease, or end stage renal disease; I50.32 Chronic diastolic (congestive) heart failure; E11.22 Type 2 diabetes mellitus with diabetic chronic kidney disease; N18.6 End stage renal disease; D63.1 Anemia in chronic kidney disease; N25.81 Secondary hyperparathyroidism of renal origin; J96.10 Chronic respiratory failure, unspecified whether with hypoxia or hypercapnia; J44.9 Chronic obstructive pulmonary disease, unspecified; I87.2 Venous insufficiency (chronic) (peripheral); I89.0 Lymphedema, not elsewhere classified; F41.9 Anxiety disorder, unspecified; E78.5 Hyperlipidemia, unspecified; F32.9 Major depressive disorder, single episode, unspecified; K21.9 Gastro-esophageal reflux disease without esophagitis; I25.10 Atherosclerotic heart disease of native coronary artery without angina pectoris; E66.01 Morbid (severe) obesity due to excess calories; K42.9 Umbilical hernia without obstruction or gangrene; I48.2 Chronic atrial fibrillation; E03.9 Hypothyroidism, unspecified; I72.8 Aneurysm of other specified arteries; I25.2 Old myocardial infarction; Q61.3 Polycystic kidney, unspecified; Z99.2 Dependence on renal dialysis; Z99.81 Dependence on supplemental oxygen; Z95.5 Presence of coronary angioplasty implant and graft; Z79.82 Long term (current) use of aspirin; Z79.02 Long term (current) use of antithrombotics/antiplatelets; Z87.891 Personal history of nicotine dependence; Z86.73 Personal history of transient ischemic attack (TIA), and cerebral infarction without residual deficits; Z88.1 Allergy status to other antibiotic agents; Z68.34 Body mass index [BMI] 34.0-34.9, adult; Z91.11 Patient's noncompliance with dietary regimen
CPT/HCPCS: 49083; 71045; 74176; 80048; 80053; 80069; 80074; 80076; 80162; 81003; 82040; 82140; 82728; 83540; 83605; 83735; 83880; 84100; 84145 90; 84439; 84443; 84466; 84484; 85025; 85027; 85610; 85730; 86038; 86141; 87040; 87070; 87205; 87641; 88108; 88305; 89051; 93005; 94640; 94760; 94799; 99281; 99285; C1751; J0881; J1644; J2543; J3370; J7040; J7050; J7120; P9047; S0030

== ENCOUNTER → 2017-12-15 | Outpatient (CLI) | payer OTHER ==
[~2017-12-15] MED LIST changes: +CHOLESTYRAMINE P4 GM PO; +FLORASTOR250 MG PO; +LEVOTHYROXINE25 MCG PO; +LEVOTHYROXINE50 MCG PO; +LYRICA50 MG PO; +MIDODRINE HCL5 MG PO; +SPIRIVA18 MCG IH; +VALSARTAN320 MG PO; +VANCOCIN HCL125 MG PO
== END ==
LOC: RAD 08:09
PROC: 0W9G3ZZ Drainage of Peritoneal Cavity, Percutaneous Approach (ICD-10-PCS; principal; 2017-12-15)
DX: R18.8 Other ascites (principal)
CPT/HCPCS: 49083; 94640